=== PATIENT | male | born 1950 | race Caucasian/White ===

== ENCOUNTER 2018-03-16 11:30 | Observation (INO) ==
[2018-03-16] MEDS ORDERED: Acetaminophen 325 MG TABLET PO ONE (11:36)
[2018-03-16] MEDS ORDERED: Ipratropium/Albuterol Neb 3 ML IH ONE (11:43)
[2018-03-16] MEDS ORDERED: methylPREDNISolone 125 MG/2 ML VIAL IVP ONE (11:44)
--- NOTE | 2018-03-16 11:55 | Emergency Department Note ---
Disposition Clinical Impression: HCAP (healthcare-associated pneumonia) Disposition: Admitted As Inpatient Condition: Fair General Adult HPI - General Chief complaint: ED Fever Stated complaint: fever/edema Time Seen by Provider: 03/16/18 11:33 Source: patient, EMS Limitations: no limitations Nursing Notes Reviewed: Yes Vital Signs Reviewed: Yes - History of Present Illness HPI Narrative: 67-year-old male who stays at [facility] emergency department after concern for fever at group home. They reported temperature was as high as 102 degrees. Patient's reported that he has had chills for the last 2-1/2 weeks. He states his also states that he has increasing lower extremity edema as well. Patient does have known history of congestive heart failure. Patient states that he has had increased cough, has a history of smoking. Pain Scale: 0 - Related Data Home Medications Medication Instructions Recorded Confirmed Atorvastatin Calcium [Lipitor] 20 mg PO HS 01/11/17 03/16/18 Aspirin [Lo-Dose Aspirin EC] 81 mg PO DAILY 03/16/18 03/16/18 Brimonidine Tartrate [Alphagan P] 1 drop LEFT EYE BID 03/16/18 03/16/18 Carvedilol 3.125 mg PO BID 03/16/18 03/16/18 Cyclopentolate 1 drop LEFT EYE TID 03/16/18 03/16/18 Docusate Sodium [Dok] 100 mg PO BID 03/16/18 03/16/18 Furosemide [Lasix] 40 mg PO DAILY 03/16/18 03/16/18 Hydralazine HCl 50 mg PO TID 03/16/18 03/16/18 Isosorbide DInitrate [Isordil] 40 mg PO TID 03/16/18 03/16/18 Loperamide [Imodium] 2 mg PO DAILY PRN 03/16/18 03/16/18 Melatonin [Melatin] 6 mg PO HS 03/16/18 03/16/18 Metformin HCl [Glucophage] 1,000 mg PO DAILY 03/16/18 03/16/18 Polyethylene Glycol 3350 [MiraLAX 1 scoop PO DAILY 03/16/18 03/16/18 Powder Bulk 17.9 Oz] Potassium Chloride [K-Tab ER] 20 meq PO DAILY 03/16/18 03/16/18 PrednisoLONE Acetate 1% Opth 1 drop LEFT EYE QID 03/16/18 03/16/18 [PredFORTE 1%] Warfarin [Coumadin] 3.5 mg PO DAILY 03/16/18 03/16/18 Allergies Allergy/AdvReac Type Severity Reaction Status Date / Time No Known Allergies Allergy Verified 01/11/17 09:05 All systems ED: reviewed and negative except as stated. Review of Systems: As Per HPI Constitutional: Reports: fever, chills Cardiovascular: Denies: chest pain Respiratory: Reports: cough. Denies: dyspnea Gastrointestinal: Denies: abdominal pain, nausea, vomiting Genitourinary: Denies: urgency, dysuria Musculoskeletal: Denies: back pain Neurological: Denies: headache Endocrine: Reports: fatigue Past Medical History - Past Medical History Medical history: Reports: atrial fibrillation, CHF, coronary artery disease, diabetes, hypertension, myocardial infarction, renal disease, other Psychiatric history: Reports: no psych history - Social History Smoking Status: Former smoker Smokeless Tobacco Status: No Alcohol use: Reports: none Drug use: Reports: none Physical Exam - General Limitations: no limitations General appearance: alert, in no apparent distress - Head Head exam: atraumatic, normocephalic - Eye Eye exam: Present: EOMI. Absent: scleral icterus - ENT ENT exam: mucous membranes dry - Neck Neck exam: Present: trachea midline - Chest Chest inspection: Present: symmetric chest wall rise - Respiratory Respiratory exam: Present: normal lung sounds bilaterally. Absent: respiratory distress - Cardiovascular Cardiovascular exam: Present: regular rate, normal rhythm, normal heart sounds - Abdominal Exam Abdominal exam: Present: soft, Non-Tender. Absent: distention, guarding, rebound, rigidity - Extremities Exam Extremities exam: Present: other (Chronic venous stasis changes) - Neurological Exam Neurological exam: Present: alert - Skin Skin exam: Present: warm, dry Course Vital Signs Temperature 97.5 F L 03/16/18 11:32 Pulse Rate 71 03/16/18 11:32 Respiratory Rate 19 03/16/18 11:32 Blood Pressure 193/117 03/16/18 11:32 O2 Sat by Pulse Oximetry 96 03/16/18 11:32 Temperature 97.5 F L 03/16/18 11:32 Pulse Rate 98 03/16/18 14:35 Respiratory Rate 26 03/16/18 14:35 Blood Pressure 178/105 03/16/18 14:35 O2 Sat by Pulse Oximetry 100 03/16/18 14:35 Oxygen Delivery Oxygen Delivery Nasal Cannula Medical Decision Making - MDM Narrative Medical decision making narrative: 67-year-old male presents to the emergency department with concern for fever at [facility]. Patient had temperature 102 degrees there. Patient currently afebrile here. He is not tachycardic. He is not hypotensive. Clinically, I do not hear any wheezes on lung exam, do not hear any rales. He does not appear to be in any respiratory distress. Patient has been complaining of increasing cough for last few weeks. I do suspect he may have a component of COPD. We will give DuoNeb's here in the emergency department as well as 125 mg Solu-Medrol. Patient not currently hypoxic. Chest x-ray reveals airspace opacification patient in the right upper lobe. Patient also has cardiomegaly pulmonary vascular congestion. Due to him being a group home patient, there is concern for HCAP. Patient has been given cefepime, azithromycin, vancomycin. Patient's oxygen saturation dropped after administration of DuoNeb's. He was placed on nasal cannula at 4 L at that point. Troponin is 0.04. Is the patient's normal limits. Patient has elevated creatinine. It is 1.85. This is also within his normal range and improved. Patient was admitted to hospitalist. Hemodynamically stable at that time. I discussed plan with patient and he agreed. Chest X-Ray 03/16/18 11:38 IMPRESSION: Airspace opacification in the right upper lobe could represent pneumonia Cardiomegaly with pulmonary vascular congestion D/ / Lasha Long MD / Lasha Long MD Interpreting Provider: Lasha Long MD - Lab Data Result diagrams: 03/16/18 12:32 03/16/18 12:32 Lab Results 03/16/18 03/16/18 03/16/18 Range/Units 12:32 12:32 12:32 WBC 10.7 (4.3-11.1) K/mcL RBC 4.00 L (4.19-5.50) M/mcL Hgb 11.5 L (12.9-16.9) g/dL Hct 36.5 L (37.5-50.1) % MCV 91.3 (83.0-100.0) fL MCH 28.8 (28.0-33.3) pg MCHC 31.5 L (31.6-35.5) g/dL RDW 14.9 H (11.5-14.5) % Plt Count 233 (140-400) K/mcL MPV 10.8 (9.4-12.4) fL Immature Gran % 0.5 (0-4) % Seg Neutrophils % 66.1 % Lymphocytes % 24.4 % Monocytes % 8.4 % Eosinophils % 0.3 % Basophils % 0.3 % Neutrophils # 7.1 (1.6-8.9) K/mcL Lymphocytes # 2.6 (0.6-4.6) K/mcL Monocytes # 0.9 (0.0-1.3) K/mcL Eosinophils # 0.0 (0.0-0.6) K/mcL Basophils # 0.0 (0.0-0.2) K/mcL Nucleated RBCs/100 WBC 0.3 H (0) /100 WBC PT (9.4-12.1) Seconds INR Sodium 140 (136-145) mEq/L Potassium 3.7 (3.5-5.1) mEq/L Chloride 111 H (98-107) mEq/L Carbon Dioxide 18 L (23-29) mEq/L BUN 38 H (8-23) mg/dL Creatinine 1.85 H (0.70-1.30) mg/dL Est GFR ( Amer) 45 L (> 60) Est GFR (Non-Af Amer) 37 L (> 60) BUN/Creatinine Ratio 21 (6-26) Glucose 109 H (70-105) mg/dL Calculated Osmolality 300 (280-300) Lactic Acid 1.3 (0.5-2.2) mmol/L Calcium 8.7 (8.6-10.3) mg/dL Total Bilirubin 0.8 (0.3-1.0) mg/dL Direct Bilirubin 0.4 H (0.0-0.2) mg/dL Indirect Bilirubin 0.4 (0.0-1.2) mg/dL AST 11 L (13-39) Units/L ALT 11 (7-52) Units/L Alkaline Phosphatase 199 H (34-104) Units/L Troponin I 0.04 H* (< 0.04) ng/mL B-Natriuretic Peptide (Less than 100) pg/mL Serum Total Protein 5.8 L (6.4-8.9) g/dL Albumin 2.8 L (3.5-5.7) g/dL Globulin 3.0 (2.4-3.5) g/dL Albumin/Globulin Ratio 0.9 L (1.1-2.2) Lipase 5 L (11-82) Units/L 03/16/18 03/16/18 Range/Units 12:32 13:27 WBC (4.3-11.1) K/mcL RBC (4.19-5.50) M/mcL Hgb (12.9-16.9) g/dL Hct (37.5-50.1) % MCV (83.0-100.0) fL MCH (28.0-33.3) pg MCHC (31.6-35.5) g/dL RDW (11.5-14.5) % Plt Count (140-400) K/mcL MPV (9.4-12.4) fL Immature Gran % (0-4) % Seg Neutrophils % % Lymphocytes % % Monocytes % % Eosinophils % % Basophils % % Neutrophils # (1.6-8.9) K/mcL Lymphocytes # (0.6-4.6) K/mcL Monocytes # (0.0-1.3) K/mcL Eosinophils # (0.0-0.6) K/mcL Basophils # (0.0-0.2) K/mcL Nucleated RBCs/100 WBC (0) /100 WBC PT 15.7 H (9.4-12.1) Seconds INR 1.4 Sodium (136-145) mEq/L Potassium (3.5-5.1) mEq/L Chloride (98-107) mEq/L Carbon Dioxide (23-29) mEq/L BUN (8-23) mg/dL Creatinine (0.70-1.30) mg/dL Est GFR ( Amer) (> 60) Est GFR (Non-Af Amer) (> 60) BUN/Creatinine Ratio (6-26) Glucose (70-105) mg/dL Calculated Osmolality (280-300) Lactic Acid (0.5-2.2) mmol/L Calcium (8.6-10.3) mg/dL Total Bilirubin (0.3-1.0) mg/dL Direct Bilirubin (0.0-0.2) mg/dL Indirect Bilirubin (0.0-1.2) mg/dL AST (13-39) Units/L ALT (7-52) Units/L Alkaline Phosphatase (34-104) Units/L Troponin I (< 0.04) ng/mL B-Natriuretic Peptide > 5000 H (Less than 100) pg/mL Serum Total Protein (6.4-8.9) g/dL Albumin (3.5-5.7) g/dL Globulin (2.4-3.5) g/dL Albumin/Globulin Ratio (1.1-2.2) Lipase (11-82) Units/L - EKG Data EKG #1 EKG attestation: Yes I reviewed and interpreted this EKG. EKG results narrative: 11:57 Ventricular rate 75 bpm, no FL interval, QRS duration 164 ms, QTC 457 ms, QTC 485 ms, left axis deviation. No evidence of any ischemic ST changes on this EKG. Compare with the previous study obtained on 12/17/2017.
[2018-03-16] MEDS ORDERED: Cefepime HCl 2,000 MG in Water for inj. (sterile) 20 ML 20 ML IVP ONE (12:26)
[2018-03-16] MEDS ORDERED: Azithromycin 500 MG in D5% in Water 250 ML IVPB ONE (12:26)
[2018-03-16 13:28] LABS: Basophils % 0.3 %; Eosinophils % 0.3 %; Hematocrit 36.5 % (37.5-50.1); Hemoglobin 11.5 g/dL (12.9-16.9); Immature Granulocytes % 0.5 % (0-4); Lymphocytes # 2.6 K/mcL (0.6-4.6); Lymphocytes % 24.4 %; Mean Corpuscular HGB Conc 31.5 g/dL (31.6-35.5); Mean Corpuscular Hemoglobin 28.8 pg (28.0-33.3); Mean Corpuscular Volume 91.3 fL (83.0-100.0); Mean Platelet Volume 10.8 fL (9.4-12.4); Monocytes # 0.9 K/mcL (0.0-1.3); Monocytes % 8.4 %; Neutrophils # 7.1 K/mcL (1.6-8.9); Nucleated Red Blood Cells 0.3 /100 WBC (0); Platelet Count 233 K/mcL (140-400); Red Cell Distribution Width 14.9 % (11.5-14.5); Segmented Neutrophils % 66.1 %
[2018-03-16 13:53] LABS: Albumin 2.8 g/dL (3.5-5.7); Albumin/Globulin Ratio 0.9 (1.1-2.2); Bilirubin,Direct 0.4 mg/dL (0.0-0.2); Bilirubin,Indirect 0.4 mg/dL (0.0-1.2); Bilirubin,Total 0.8 mg/dL (0.3-1.0); Calcium 8.7 mg/dL (8.6-10.3); Potassium 3.7 mEq/L (3.5-5.1); Total Protein 5.8 g/dL (6.4-8.9)
[2018-03-16 13:59] LABS: Troponin I 0.04 ng/mL (< 0.04)
[2018-03-16 14:06] LABS: INR 1.4; Prothrombin Time 15.7 Seconds (9.4-12.1)
--- NOTE | 2018-03-16 14:08 | Emergency Department Note ---
Disposition Clinical Impression: HCAP (healthcare-associated pneumonia) Disposition: Admitted As Inpatient Condition: Fair Referrals: Fer Nur MD [Primary Care Provider] - Forms: ED Satisfaction Letter Time of Disposition: 13:00 General Adult HPI - General Chief complaint: ED Fever Stated complaint: fever/edema Time Seen by Provider: 03/16/18 11:33 Source: patient, EMS Limitations: no limitations Nursing Notes Reviewed: Yes Vital Signs Reviewed: Yes - History of Present Illness Pain Scale: 0 - Related Data Home Medications Medication Instructions Recorded Confirmed Atorvastatin Calcium [Lipitor] 20 mg PO HS 01/11/17 03/16/18 Aspirin [Lo-Dose Aspirin EC] 81 mg PO DAILY 03/16/18 03/16/18 Brimonidine Tartrate [Alphagan P] 1 drop LEFT EYE BID 03/16/18 03/16/18 Carvedilol 3.125 mg PO BID 03/16/18 03/16/18 Cyclopentolate 1 drop LEFT EYE TID 03/16/18 03/16/18 Docusate Sodium [Dok] 100 mg PO BID 03/16/18 03/16/18 Furosemide [Lasix] 40 mg PO DAILY 03/16/18 03/16/18 Hydralazine HCl 50 mg PO TID 03/16/18 03/16/18 Isosorbide DInitrate [Isordil] 40 mg PO TID 03/16/18 03/16/18 Loperamide [Imodium] 2 mg PO DAILY PRN 03/16/18 03/16/18 Melatonin [Melatin] 6 mg PO HS 03/16/18 03/16/18 Metformin HCl [Glucophage] 1,000 mg PO DAILY 03/16/18 03/16/18 Polyethylene Glycol 3350 [MiraLAX 1 scoop PO DAILY 03/16/18 03/16/18 Powder Bulk 17.9 Oz] Potassium Chloride [K-Tab ER] 20 meq PO DAILY 03/16/18 03/16/18 PrednisoLONE Acetate 1% Opth 1 drop LEFT EYE QID 03/16/18 03/16/18 [PredFORTE 1%] Warfarin [Coumadin] 3.5 mg PO DAILY 03/16/18 03/16/18 Allergies Allergy/AdvReac Type Severity Reaction Status Date / Time No Known Allergies Allergy Verified 01/11/17 09:05 Constitutional: Reports: fever, chills Cardiovascular: Denies: chest pain Respiratory: Reports: cough. Denies: dyspnea Gastrointestinal: Denies: abdominal pain, nausea, vomiting Genitourinary: Denies: urgency, dysuria Musculoskeletal: Denies: back pain Neurological: Denies: headache Endocrine: Reports: fatigue Past Medical History - Past Medical History Medical history: Reports: atrial fibrillation, CHF, coronary artery disease, diabetes, hypertension, myocardial infarction, renal disease, other Psychiatric history: Reports: no psych history - Social History Smoking Status: Former smoker Smokeless Tobacco Status: No Alcohol use: Reports: none Drug use: Reports: none Physical Exam - General Limitations: no limitations General appearance: alert, in no apparent distress Course Vital Signs Temperature 97.5 F L 03/16/18 11:32 Pulse Rate 71 03/16/18 11:32 Respiratory Rate 19 03/16/18 11:32 Blood Pressure 193/117 03/16/18 11:32 O2 Sat by Pulse Oximetry 96 03/16/18 11:32 Temperature 97.5 F L 03/16/18 11:32 Pulse Rate 87 03/16/18 13:28 Respiratory Rate 26 03/16/18 13:28 Blood Pressure 168/111 03/16/18 13:28 O2 Sat by Pulse Oximetry 99 03/16/18 13:28 Oxygen Delivery Oxygen Delivery Nasal Cannula Medical Decision Making - Lab Data Result diagrams: 03/16/18 12:32 03/16/18 12:32 Lab Results 03/16/18 03/16/18 03/16/18 Range/Units 12:32 12:32 12:32 WBC 10.7 (4.3-11.1) K/mcL RBC 4.00 L (4.19-5.50) M/mcL Hgb 11.5 L (12.9-16.9) g/dL Hct 36.5 L (37.5-50.1) % MCV 91.3 (83.0-100.0) fL MCH 28.8 (28.0-33.3) pg MCHC 31.5 L (31.6-35.5) g/dL RDW 14.9 H (11.5-14.5) % Plt Count 233 (140-400) K/mcL MPV 10.8 (9.4-12.4) fL Immature Gran % 0.5 (0-4) % Seg Neutrophils % 66.1 % Lymphocytes % 24.4 % Monocytes % 8.4 % Eosinophils % 0.3 % Basophils % 0.3 % Neutrophils # 7.1 (1.6-8.9) K/mcL Lymphocytes # 2.6 (0.6-4.6) K/mcL Monocytes # 0.9 (0.0-1.3) K/mcL Eosinophils # 0.0 (0.0-0.6) K/mcL Basophils # 0.0 (0.0-0.2) K/mcL Nucleated RBCs/100 WBC 0.3 H (0) /100 WBC PT (9.4-12.1) Seconds INR Sodium 140 (136-145) mEq/L Potassium 3.7 (3.5-5.1) mEq/L Chloride 111 H (98-107) mEq/L Carbon Dioxide 18 L (23-29) mEq/L BUN 38 H (8-23) mg/dL Creatinine 1.85 H (0.70-1.30) mg/dL Est GFR ( Amer) 45 L (> 60) Est GFR (Non-Af Amer) 37 L (> 60) BUN/Creatinine Ratio 21 (6-26) Glucose 109 H (70-105) mg/dL Calculated Osmolality 300 (280-300) Lactic Acid 1.3 (0.5-2.2) mmol/L Calcium 8.7 (8.6-10.3) mg/dL Total Bilirubin 0.8 (0.3-1.0) mg/dL Direct Bilirubin 0.4 H (0.0-0.2) mg/dL Indirect Bilirubin 0.4 (0.0-1.2) mg/dL AST 11 L (13-39) Units/L ALT 11 (7-52) Units/L Alkaline Phosphatase 199 H (34-104) Units/L Troponin I 0.04 H* (< 0.04) ng/mL Serum Total Protein 5.8 L (6.4-8.9) g/dL Albumin 2.8 L (3.5-5.7) g/dL Globulin 3.0 (2.4-3.5) g/dL Albumin/Globulin Ratio 0.9 L (1.1-2.2) Lipase 5 L (11-82) Units/L /08/18 Range/Units 13:27 WBC (4.3-11.1) K/mcL RBC (4.19-5.50) M/mcL Hgb (12.9-16.9) g/dL Hct (37.5-50.1) % MCV (83.0-100.0) fL MCH (28.0-33.3) pg MCHC (31.6-35.5) g/dL RDW (11.5-14.5) % Plt Count (140-400) K/mcL MPV (9.4-12.4) fL Immature Gran % (0-4) % Seg Neutrophils % % Lymphocytes % % Monocytes % % Eosinophils % % Basophils % % Neutrophils # (1.6-8.9) K/mcL Lymphocytes # (0.6-4.6) K/mcL Monocytes # (0.0-1.3) K/mcL Eosinophils # (0.0-0.6) K/mcL Basophils # (0.0-0.2) K/mcL Nucleated RBCs/100 WBC (0) /100 WBC PT 15.7 H (9.4-12.1) Seconds INR 1.4 Sodium (136-145) mEq/L Potassium (3.5-5.1) mEq/L Chloride (98-107) mEq/L Carbon Dioxide (23-29) mEq/L BUN (8-23) mg/dL Creatinine (0.70-1.30) mg/dL Est GFR ( Amer) (> 60) Est GFR (Non-Af Amer) (> 60) BUN/Creatinine Ratio (6-26) Glucose (70-105) mg/dL Calculated Osmolality (280-300) Lactic Acid (0.5-2.2) mmol/L Calcium (8.6-10.3) mg/dL Total Bilirubin (0.3-1.0) mg/dL Direct Bilirubin (0.0-0.2) mg/dL Indirect Bilirubin (0.0-1.2) mg/dL AST (13-39) Units/L ALT (7-52) Units/L Alkaline Phosphatase (34-104) Units/L Troponin I (< 0.04) ng/mL Serum Total Protein (6.4-8.9) g/dL Albumin (3.5-5.7) g/dL Globulin (2.4-3.5) g/dL Albumin/Globulin Ratio (1.1-2.2) Lipase (11-82) Units/L Attestation Statement - Attestation Attestation: I, Naga Herr, examined this patient and my medical decision-making was reviewed with the IP NETWORK ARCHITECT/PA/Advanced Practice Nurse/Resident Physician. I agree with the documented findings, disposition and treatment plan as described except to the extent set forth below. 67-year-old male presents emergency Department with concerns of fever, shortness of breath, cough productive of yellow pierre sputum. Patient states symptoms have been worsening over the past week. Patient is a poor historian and has difficulty giving a full history regarding his symptoms. Patient has decreased lung sounds bilaterally however no obvious wheezing was present. Chest x-ray shows a right upper lobe pneumonia. [facility] states he had a fever over the past 2 days. Laboratory evaluation showed elevated troponin at 0.04 however is been elevated to this level in the past. Patient also has elevated creatinine at 1.85 however this is better than his previous creatinine recorded in the EMR. He will be given HCAP antibiotics and admitted to the hospitalist for further care and evaluation. Denied chest pain or palpitations or syncope.
[2018-03-16] MEDS ORDERED: Aminoglycoside Consult 1 EACH MC ONE (14:41)
--- NOTE | 2018-03-16 16:48 | Internal Med History&Physical ---
Date of Encounter: 03/16/18 Time of Encounter: 17:30 Internal Medicine - H&P: HPI History of present illness: Mr. Nunn is a 67 year old male 67-year-old male presented with emergency department after concern for fever at [facility]. They reported temperature was as high as 102 degrees. Patient's reported that he has had chills for the last 2-1/2 weeks. He states his also states that he has increasing lower extremity edema as well. Patient does have known history of congestive heart failure. Patient states that he has had increased cough, has a history of smoking. Pain Scale: 0 Past Med Surg Social Fam HX - Past Medical History Medical history: atrial fibrillation, CHF, coronary artery disease, diabetes, hypertension, myocardial infarction, renal disease, other Additional medical history: anemia, mycosis Psychiatric history: no psych history - Past Surgical History Additional surgical history: stents x3, bowel, colostomy and reversal - Social History Smoking Status: Former smoker Smokeless Tobacco Status: No Alcohol use: none Drug use: none Internal Medicine - H&P: Meds Atorvastatin Calcium [Lipitor] 20 mg PO HS 01/11/17 [History] Aspirin [Lo-Dose Aspirin EC] 81 mg PO DAILY 03/16/18 [History] Brimonidine Tartrate [Alphagan P] 1 drop LEFT EYE BID 03/16/18 [History] Carvedilol 3.125 mg PO BID 03/16/18 [History] Cyclopentolate 1 drop LEFT EYE TID 03/16/18 [History] Docusate Sodium [Dok] 100 mg PO BID 03/16/18 [History] Furosemide [Lasix] 40 mg PO DAILY 03/16/18 [History] Hydralazine HCl 50 mg PO TID 03/16/18 [History] Isosorbide DInitrate [Isordil] 40 mg PO TID 03/16/18 [History] Loperamide [Imodium] 2 mg PO DAILY PRN 03/16/18 [History] Melatonin [Melatin] 6 mg PO HS 03/16/18 [History] Metformin HCl [Glucophage] 1,000 mg PO DAILY 03/16/18 [History] Polyethylene Glycol 3350 [MiraLAX Powder Bulk 17.9 Oz] 1 scoop PO DAILY [History] Potassium Chloride [K-Tab ER] 20 meq PO DAILY 03/16/18 [History] PrednisoLONE Acetate 1% Opth [PredFORTE 1%] 1 drop LEFT EYE QID 03/16/18 [ History] Warfarin [Coumadin] 3.5 mg PO DAILY 03/16/18 [History] 3 Allergy/AdvReac Type Severity Reaction Status Date / Time No Known Allergies Allergy Verified 01/11/17 09:05 All Systems PM: A 10-system review of systems was performed and is negative for pertinent findings except as documented above in the HPI. - Constitutional Vitals: Temp Pulse Resp BP Pulse Ox 97.5 F L 82 16 154/93 98 03/16/18 15:24 03/16/18 15:24 03/16/18 15:24 03/16/18 15:24 03/16/18 15:24 Internal Med - H&P Results - Labs CBC & Chem 7: 03/16/18 12:32 03/16/18 12:32 - Assessment and plan (1) HCAP (healthcare-associated pneumonia) Current Visit: Yes Status: Acute (2) Diabetes mellitus Current Visit: Yes Status: Acute (3) Chronic kidney disease Current Visit: Yes Status: Acute (4) Hypertension Current Visit: Yes Status: Acute (5) DVT prophylaxis Current Visit: Yes Status: Acute - Time Spent With Patient Total time spent is greater than 50% in coordination of care (as documented) at patient's floor/unit and/or counseling patient:
[2018-03-16] MEDS ORDERED: Naloxone 0.4 MG/ML INJ IVP PRN (17:37)
[2018-03-16] MEDS ORDERED: *HR* OxyCODONE Immed Rel 5 MG TABLET PO PRN (17:37)
[2018-03-16] MEDS ORDERED: *HR* HYDROcodone/Acet 5/325 mg TABLET PO PRN (17:37)
[2018-03-16] MEDS ORDERED: Warfarin perPT PO PRN (18:00)
[2018-03-16] MEDS ORDERED: Cefepime HCl 2,000 MG in Water for inj. (sterile) 20 ML 20 ML IVP SCH (18:00)
[2018-03-16] MEDS ORDERED: Vancomycin (wt based) 1,000 MG VIAL IVPB SCH (18:00)
[2018-03-16] MEDS ORDERED: *HR* Warfarin 5 MG TABLET PO ONE (18:12)
[2018-03-16] MEDS: Melatonin 3 MG TABLET PO SCH (21:29)
[2018-03-16] MEDS: hydrALAZINE 25 MG TABLET PO SCH (21:29)
[2018-03-16] MEDS: PrednisoLONE Acetate 1% Opth 5 ML BOTTLE LEFT EYE SCH (21:30)
[2018-03-16] MEDS: Cyclopentolate 2 ML BOTTLE LEFT EYE SCH (21:31)
[2018-03-17] MEDS: Cefepime HCl 2,000 MG in Water for inj. (sterile) 20 ML 20 ML IVP SCH ×2 (00:31→12:01)
--- NOTE | 2018-03-17 04:34 | Internal Med History&Physical ---
Date of Encounter: 03/17/18 Time of Encounter: 06:48 Internal Medicine - H&P: HPI History of present illness: Mr. Nunn is a 67 year who presents to the emergency department with concern for fever with temperature 102 degrees , associated with increasing cough for last few weeks. He was treated with DuoNeb's in emergency department as well as 125 mg Solu-Medrol, cefepime, azithromycin, vancomycin and was admitted for further evaluation. Past Med Surg Social Fam HX - Past Medical History Medical history: atrial fibrillation, CHF, coronary artery disease, diabetes, hypertension, myocardial infarction, renal disease, other Additional medical history: anemia, mycosis Psychiatric history: no psych history - Past Surgical History Additional surgical history: stents x3, bowel, colostomy and reversal - Social History Smoking Status: Former smoker Smokeless Tobacco Status: No Alcohol use: none Drug use: none Internal Medicine - H&P: Meds Atorvastatin Calcium [Lipitor] 20 mg PO HS 01/11/17 [History] Aspirin [Lo-Dose Aspirin EC] 81 mg PO DAILY 03/16/18 [History] Brimonidine Tartrate [Alphagan P] 1 drop LEFT EYE BID 03/16/18 [History] Carvedilol 3.125 mg PO BID 03/16/18 [History] Cyclopentolate 1 drop LEFT EYE TID 03/16/18 [History] Docusate Sodium [Dok] 100 mg PO BID 03/16/18 [History] Furosemide [Lasix] 40 mg PO DAILY 03/16/18 [History] Hydralazine HCl 50 mg PO TID 03/16/18 [History] Isosorbide DInitrate [Isordil] 40 mg PO TID 03/16/18 [History] Loperamide [Imodium] 2 mg PO DAILY PRN 03/16/18 [History] Melatonin [Melatin] 6 mg PO HS 03/16/18 [History] Metformin HCl [Glucophage] 1,000 mg PO DAILY 03/16/18 [History] Polyethylene Glycol 3350 [MiraLAX Powder Bulk 17.9 Oz] 1 scoop PO DAILY [History] Potassium Chloride [K-Tab ER] 20 meq PO DAILY 03/16/18 [History] PrednisoLONE Acetate 1% Opth [PredFORTE 1%] 1 drop LEFT EYE QID 03/16/18 [ History] Warfarin [Coumadin] 3.5 mg PO DAILY 03/16/18 [History] 3 Allergy/AdvReac Type Severity Reaction Status Date / Time No Known Allergies Allergy Verified 01/11/17 09:05 All Systems PM: A 10-system review of systems was performed and is negative for pertinent findings except as documented above in the HPI. - Constitutional Vitals: Temp Pulse Resp BP Pulse Ox 97.5 F L 64 18 149/82 94 03/17/18 01:18 03/17/18 01:18 03/17/18 01:18 03/17/18 01:18 03/17/18 01:18 Internal Med - H&P Results - Labs CBC & Chem 7: 03/16/18 12:32 03/16/18 12:32 Labs: Cardiac Enzymes 03/16/18 03/16/18 Range/Units 18:23 23:45 Troponin I 0.07 H* 0.03 (< 0.04) ng/mL - Assessment and plan (1) HCAP (healthcare-associated pneumonia) Current Visit: Yes Status: Acute Assessment and plan: ASSESSMENT: - SOB COPD exacerbation caused by URTI (Pneumonia) PLAN: - Aerosols q 4 hr and PRN SOB - Solu-medrol 40 mg IV q 6 hr - O2 to keep SpO2 higher than 92% (SpO higher than 95% if CAD) - CBCD, BMP in AM - Sputum Gram stain, C+S - Tylenol 650 mg PO q 4-6 hr PRN pain/fever - Heparin 5000 U SQ BID - Home meds - check the list and restart - ABs - Echo to R/O CHF (2) Diabetes mellitus Current Visit: Yes Status: Inactive (3) Chronic kidney disease Current Visit: Yes Status: Acute (4) Hypertension Current Visit: Yes Status: Acute (5) DVT prophylaxis Current Visit: Yes Status: Acute - Time Spent With Patient Total time spent is greater than 50% in coordination of care (as documented) at patient's floor/unit and/or counseling patient:
[2018-03-17] MEDS ORDERED: Azithromycin 500 MG in D5% in Water 250 ML IVPB SCH (05:00)
[2018-03-17] MEDS: Ipratropium/Albuterol Neb 3 ML IH SCH ×4 (05:10→21:30)
[2018-03-17] MEDS: MethylPREDNISolone 40 MG/ML VIAL IVP SCH ×3 (05:10→18:22)
[2018-03-17 06:10] LABS: Hematocrit 30.5 % (37.5-50.1); Mean Corpuscular HGB Conc 31.5 g/dL (31.6-35.5); Mean Corpuscular Hemoglobin 28.5 pg (28.0-33.3); Mean Corpuscular Volume 90.5 fL (83.0-100.0); Platelet Count 216 K/mcL (140-400); Red Blood Count 3.37 M/mcL (4.19-5.50); Red Cell Distribution Width 14.8 % (11.5-14.5)
[2018-03-17 06:11] LABS: Hemoglobin 9.6 g/dL (12.9-16.9)
[2018-03-17 06:17] LABS: INR 1.5; Prothrombin Time 16.8 Seconds (9.4-12.1)
[2018-03-17 06:19] LABS: Activated Partial Thrombo Time 34.7 Seconds (26.0-36.0)
[2018-03-17 06:30] LABS: Albumin 2.2 g/dL (3.5-5.7); Albumin/Globulin Ratio 0.8 (1.1-2.2); Bilirubin,Total 0.5 mg/dL (0.3-1.0); Calcium 7.9 mg/dL (8.6-10.3); Chol/HDL Ratio 3.9 (0-4.9); Globulin 2.7 g/dL (2.4-3.5); Magnesium 1.8 mg/dL (1.6-2.6); Phosphorous 4.6 mg/dL (2.7-4.5); Potassium 4.1 mEq/L (3.5-5.1); Total Protein 4.9 g/dL (6.4-8.9)
[2018-03-17] MEDS: hydrALAZINE 25 MG TABLET PO SCH ×3 (09:35→22:06)
[2018-03-17] MEDS: Furosemide 40 MG TABLET PO SCH (09:35)
[2018-03-17] MEDS: Aspirin Enteric Coated 81 MG Tablet PO SCH (09:36)
[2018-03-17] MEDS: *HR* Metformin 500 MG TABLET PO SCH (09:36)
[2018-03-17] MEDS: Cyclopentolate 2 ML BOTTLE LEFT EYE SCH ×3 (09:45→22:14)
[2018-03-17] MEDS: PrednisoLONE Acetate 1% Opth 5 ML BOTTLE LEFT EYE SCH ×4 (09:51→22:07)
--- NOTE | 2018-03-17 10:53 | Event Note ---
<Timoteo Duke - Last Filed: 03/17/18 15:34> Date of Encounter: 03/17/18 Time of Encounter: 10:53 Mr. Nunn is a 67M who was admitted yesterday evening for fever, chills, and increased cough. He has a hx of HTN, diabetes, and CKD. CXR in the ED revealed an airspace opacification in the right upper lobe potentially representing pneumonia. Since pt lives in a SNF it is likely HCAP. MRSA swab was positive during this admission with no prior hx of MRSA. Pt states he feels warm and is experiencing chills. Complains of increased cough without sputum production and a slight headache. Denies any chest pain, abdominal pain, nausea, vomiting, or diarrhea. Physical Exam: Head: normocephalic, atraumatic Eyes: PERRL, EOMI, sclera anicteric, conjunctive pink Neck: supple, trachea midline Lungs: CTA bilaterally with slightly diminished breath sounds in the right upper lobe. No wheezes, rales, or rhonchi appreciated. Heart: RRR +S1 +S2. No murmurs, clicks, or rubs noted. GI: abdomen soft, non-tender, non-distended. normoactive bowel sounds Extremities: warm, noted edema of the left UE, radial pulses present and symmetrical. No pedal edema or cyanosis noted. Neuro: A&Ox3. No focal deficits. No abnormal speech. Skin: Warm, dry, intact. Chronic venous stasis changes noted in bilateral LEs. A/P: HCAP: - Continue cefepime - D/C vanc since this is the pt's first MRSA + swab - D/C azithromycin - Add levofloxacin for broader coverage of atypical respiratory microbes - Continue Duonebs as needed for SOB - Continue Guaifenesin Diabetes: - Continue Metformin 1000mg HTN: - Continue Hydralazine and Lasix DVT: - continue warfarin <Leopoldo Munoz - Last Filed: 03/17/18 16:41> Date of Encounter: 03/17/18 I examined this patient and my medical decision-making was reviewed with the Resident Physician Dr. Duke. I agree with the documented findings, disposition and treatment plan as described except to the extent set forth below. Mr. Nunn is a 67 y/o M with chronic COPD, Chronic hypoxic resp failure and chronic tobacco dependence pt admitted here for acute pneumonia. Pt was started on empiricla abx. He is feeling little better today Gen: A, A, O x 3 Chest: Diminished BS b/l, moderate wheezing Heart: S1S2+ a/p 1. Acute HCAP - Mostly bacterial 2. Acute COPD exacerbation 3. Chronic Hypoxic resp failure 4. Chronic tobacco dependence emprical abx Cefepime + Levaquin Duoneb and O2 start tapering steroids
[2018-03-17 12:19] LABS: Bilirubin,Urine Small (Negative); Blood,Urine Negative (Negative); Clarity,Urine Clear (Clear); Color,Urine Yellow (Yellow); Glucose,Urine (UA) Normal (Normal); Ketones,Urine Trace mg/dL (Negative); Leukocyte Esterase,Urine Negative (Negative); Nitrite,Urine Negative (Negative); PH,Urine 5.5 pH Units (5.0-8.0); Protein,Urine >=300 mg/dL (Neg-Trace); Specific Gravity,Urine 1.023 (1.010-1.025); Urobilinogen,Urine Normal (Normal)
[2018-03-17 12:21] LABS: Bacteria,Urine None Seen per hpf (None-Few); RBC,Urine 0-3 per hpf (0-3); Squamous Epithelial Cell,Urine Moderate per lpf (None-Few); WBC,Urine 0-3 per hpf (0-3)
[2018-03-17 12:42] LABS: Hyaline Casts,Urine Few per lpf (None-Few)
[2018-03-17 12:43] LABS: Mucus,Urine Few (Few)
[2018-03-17] MEDS ORDERED: levoFLOXacin 500 MG TABLET PO SCH ×2 (13:30→18:00)
[2018-03-17] MEDS ORDERED: *HR* Warfarin 5 MG TABLET PO ONE (18:00)
[2018-03-17] MEDS: Ondansetron 4 MG/2 ML VIAL IVP PRN (18:19)
--- NOTE | 2018-03-17 19:07 | Electrocardiograph Report ---
[place] [id number] Test Date: 2018-03-16 Pat Name: Gary Nunn Department: 111 Room: 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
[2018-03-17] MEDS ORDERED: *HR* Promethazine 25 MG/ML VIAL IVP PRN (19:15)
[2018-03-17] MEDS: Melatonin 3 MG TABLET PO SCH (22:06)
[2018-03-18] MEDS: Cefepime HCl 2,000 MG in Water for inj. (sterile) 20 ML 20 ML IVP SCH ×2 (01:07→12:27)
[2018-03-18] MEDS: Ipratropium/Albuterol Neb 3 ML IH SCH ×4 (03:47→22:32)
[2018-03-18 05:12] LABS: Basophils % 0.1 %; Hematocrit 29.1 % (37.5-50.1); Hemoglobin 9.4 g/dL (12.9-16.9); Immature Granulocytes % 1.3 % (0-4); Lymphocytes # 0.9 K/mcL (0.6-4.6); Lymphocytes % 8.3 %; Mean Corpuscular HGB Conc 32.3 g/dL (31.6-35.5); Mean Corpuscular Hemoglobin 29.3 pg (28.0-33.3); Mean Corpuscular Volume 90.7 fL (83.0-100.0); Mean Platelet Volume 10.9 fL (9.4-12.4); Monocytes # 0.5 K/mcL (0.0-1.3); Monocytes % 4.8 %; Neutrophils # 8.9 K/mcL (1.6-8.9); Platelet Count 244 K/mcL (140-400); Red Blood Count 3.21 M/mcL (4.19-5.50); Red Cell Distribution Width 14.8 % (11.5-14.5); Segmented Neutrophils % 85.5 %
[2018-03-18 05:19] LABS: INR 1.6; Prothrombin Time 17.6 Seconds (9.4-12.1)
[2018-03-18 05:34] LABS: Calcium 8.1 mg/dL (8.6-10.3); Potassium 4.1 mEq/L (3.5-5.1)
[2018-03-18] MEDS: MethylPREDNISolone 40 MG/ML VIAL IVP SCH ×2 (06:30→16:47)
[2018-03-18] MEDS: Ondansetron 4 MG/2 ML VIAL IVP PRN (09:12)
[2018-03-18] MEDS: PrednisoLONE Acetate 1% Opth 5 ML BOTTLE LEFT EYE SCH ×4 (09:18→22:09)
--- NOTE | 2018-03-18 09:24 | Internal Med Progress Note ---
<Timoteo Duke - Last Filed: 03/18/18 16:11> Date of Encounter: 03/18/18 Time of Encounter: 09:05 - Assessment and plan (1) HCAP (healthcare-associated pneumonia) Current Visit: Yes Status: Acute Assessment and plan: Afebrile and no leukocytosis - Continue cefepime and levofloxacin - Continue Duonebs as needed for SOB - Continue Guaifenesin (2) Nausea & vomiting Current Visit: Yes Status: Acute Assessment and plan: Pt reports nausea and vomited yesterday Has PRN zofran and phenergan Qualifiers: Vomiting type: unspecified Vomiting Intractability: non-intractable Qualified Code(s): R11.2 - Nausea with vomiting, unspecified (3) Hypertension Current Visit: Yes Status: Acute Assessment and plan: Stable Continue Hydralazine and Lasix Qualifiers: Hypertension type: essential hypertension Qualified Code(s): I10 - Essential (primary) hypertension (4) Chronic kidney disease Current Visit: Yes Status: Acute Assessment and plan: Stable Cr today was 1.89 which appears to be around the patient's baseline from previous visits Qualifiers: Chronic kidney disease stage: unspecified stage Qualified Code(s): N18.9 - Chronic kidney disease, unspecified (5) DVT prophylaxis Current Visit: Yes Status: Acute Assessment and plan: on warfarin (6) COPD exacerbation Current Visit: Yes Status: Acute Assessment and plan: Pt very uncooperative and refusing po medications at this time Continue Solumedrol 40mg IV BID - Time Spent With Patient Total time spent is greater than 50% in coordination of care (as documented) at patient's floor/unit and/or counseling patient: - Subjective Interval history: Mr. Nunn is a 67M who was admitted on 03/16 for fever, chills, and increased cough. He has a hx of HTN, diabetes, and CKD. CXR in the ED revealed an airspace opacification in the right upper lobe potentially representing pneumonia. Since pt lives in a SNF it is likely HCAP. MRSA swab was positive during this admission with no prior hx of MRSA. 03/18: Pt resting comfortable in bed, but is irritable and minimally cooperative. States he feels worse than yesterday and now feels nauseous. Admits to an episode of emesis last night, but has not since. States cough remains unchanged with sputum production. Denies any fever, chills, chest pain, dysuria, diarrhea, headache, numbness, or tingling. - Constitutional Vitals: Temp Pulse Resp BP Pulse Ox 97.6 F 54 16 128/58 94 03/18/18 07:37 03/18/18 07:37 03/18/18 07:37 03/18/18 07:37 03/18/18 07:37 General appearance: Present: A&O X 2, answers questions appropriately. Absent: cooperative, pleasant Exam: Head: Normocephalic, atraumatic Eyes: PERRL, EOMI, conjunctiva pink, sclera anicteric Neck: Supple, trachea midline Lungs: Clear to auscultation bilaterally. Nonlabored breathing. No wheezes, rales, or rhonchi noted. Cardiac: RRR. No murmurs, clicks, or rubs noted. GI: Abdomen soft, nontender, nondistended. Normoactive bowel sounds Extremities: Warm, radial pulses palpable and symmetrical. Edema of right UE improved from yesterday. No cyanosis, pedal edema, or calf tenderness. Neuro: Alert and oriented 2. No focal deficits. Normal speech. Skin: Warm, dry, and intact. Venous stasis changes bilateral LEs. Internal Medicine: Result - Labs CBC & Chem 7: 03/18/18 04:03 03/18/18 04:03 Labs: Short CBC 03/18/18 Range/Units 04:03 WBC 10.4 (4.3-11.1) K/mcL Hgb 9.4 L (12.9-16.9) g/dL Hct 29.1 L (37.5-50.1) % Plt Count 244 (140-400) K/mcL Neutrophils # 8.9 (1.6-8.9) K/mcL BMP 03/18/18 04:03 Sodium 142 Potassium 4.1 Chloride 114 H Carbon Dioxide 22 L BUN 47 H Creatinine 1.89 H Glucose 249 H Calcium 8.1 L Urine 03/17/18 Range/Units 11:51 Urine Color Yellow (Yellow) Urine Clarity Clear (Clear) Urine pH 5.5 (5.0-8.0) pH Units Ur Specific [place] 1.023 (1.010-1.025) Urine Protein >=300 H (Neg-Trace) mg/dL Urine Glucose (UA) Normal (Normal) mg/dL - ABG Interpretation ABG results: PT/INR, D-dimer PT 17.6 Seconds (9.4-12.1) H 03/18/18 04:03 Consult Discharge Plan - Plan Referrals: Fer Nur MD [Primary Care Provider] - <Leopoldo Munoz - Last Filed: 03/18/18 16:45> Date of Encounter: 03/18/18 - Assessment and plan (1) HCAP (healthcare-associated pneumonia) Current Visit: Yes Status: Acute (2) Chronic kidney disease Current Visit: Yes Status: Acute Qualifiers: Chronic kidney disease stage: unspecified stage Qualified Code(s): N18.9 - Chronic kidney disease, unspecified (3) Hypertension Current Visit: Yes Status: Acute Qualifiers: Hypertension type: essential hypertension Qualified Code(s): I10 - Essential (primary) hypertension (4) DVT prophylaxis Current Visit: Yes Status: Acute (5) Nausea & vomiting Current Visit: Yes Status: Acute Qualifiers: Vomiting type: unspecified Vomiting Intractability: non-intractable Qualified Code(s): R11.2 - Nausea with vomiting, unspecified (6) COPD exacerbation Current Visit: Yes Status: Acute - Time Spent With Patient Total time spent is greater than 50% in coordination of care (as documented) at patient's floor/unit and/or counseling patient: - Constitutional Vitals: Temp Pulse Resp BP Pulse Ox 98.1 F 60 18 154/73 94 03/18/18 16:21 03/18/18 16:21 03/18/18 16:21 03/18/18 16:21 03/18/18 16:21 Internal Medicine: Result - Labs CBC & Chem 7: 03/18/18 04:03 03/18/18 04:03 Labs: Short CBC 03/18/18 Range/Units 04:03 WBC 10.4 (4.3-11.1) K/mcL Hgb 9.4 L (12.9-16.9) g/dL Hct 29.1 L (37.5-50.1) % Plt Count 244 (140-400) K/mcL Neutrophils # 8.9 (1.6-8.9) K/mcL BMP 07/10/18 04:03 Sodium 142 Potassium 4.1 Chloride 114 H Carbon Dioxide 22 L BUN 47 H Creatinine 1.89 H Glucose 249 H Calcium 8.1 L - ABG Interpretation ABG results: PT/INR, D-dimer PT 17.6 Seconds (9.4-12.1) H 03/18/18 04:03 - Attending Attestation I examined this patient and my medical decision-making was reviewed with the Resident Physician Dr. Duke. I agree with the documented findings, disposition and treatment plan as described except to the extent set forth below. Mr. Nunn is a 67 y/o M with chronic COPD, Chronic hypoxic resp failure and chronic tobacco dependence pt admitted here for acute pneumonia. Pt was started on empirical abx. He is feeling little better today Gen: A, A, O x 3 Chest: Diminished BS b/l, moderate wheezing Heart: S1S2+ a/p 1. Acute HCAP - Mostly bacterial 2. Acute COPD exacerbation 3. Chronic Hypoxic resp failure 4. Chronic tobacco dependence empirical abx Cefepime + Levaquin Duoneb and O2 start tapering steroids since pt refusing PO steroids, will cont IV steroids for now
[2018-03-18] MEDS: Cyclopentolate 2 ML BOTTLE LEFT EYE SCH ×3 (12:26→21:55)
[2018-03-18] MEDS: Aspirin Enteric Coated 81 MG Tablet PO SCH (12:26)
[2018-03-18] MEDS: Furosemide 40 MG TABLET PO SCH (12:26)
[2018-03-18] MEDS: hydrALAZINE 25 MG TABLET PO SCH ×3 (12:26→22:05)
[2018-03-18] MEDS: *HR* Metformin 500 MG TABLET PO SCH (12:26)
[2018-03-18] MEDS ORDERED: levoFLOXacin 500 MG TABLET PO SCH (18:00)
[2018-03-18] MEDS ORDERED: *HR* Warfarin 4 MG TABLET PO ONE (18:00)
[2018-03-18] MEDS: Melatonin 3 MG TABLET PO SCH (22:04)
[2018-03-19] MEDS: Cefepime HCl 2,000 MG in Water for inj. (sterile) 20 ML 20 ML IVP SCH ×2 (01:32→12:16)
[2018-03-19] MEDS: Ipratropium/Albuterol Neb 3 ML IH SCH ×4 (04:06→23:25)
[2018-03-19] MEDS: MethylPREDNISolone 40 MG/ML VIAL IVP SCH (05:07)
[2018-03-19 06:37] LABS: Basophils % 0.1 %; Hematocrit 30.7 % (37.5-50.1); Hemoglobin 9.5 g/dL (12.9-16.9); Lymphocytes # 0.7 K/mcL (0.6-4.6); Lymphocytes % 6.1 %; Mean Corpuscular HGB Conc 30.9 g/dL (31.6-35.5); Mean Corpuscular Hemoglobin 27.9 pg (28.0-33.3); Mean Corpuscular Volume 90.3 fL (83.0-100.0); Mean Platelet Volume 10.8 fL (9.4-12.4); Monocytes # 0.6 K/mcL (0.0-1.3); Monocytes % 4.8 %; Neutrophils # 10.7 K/mcL (1.6-8.9); Platelet Count 246 K/mcL (140-400); Red Cell Distribution Width 14.9 % (11.5-14.5)
[2018-03-19 06:43] LABS: INR 2.2; Prothrombin Time 25.1 Seconds (9.4-12.1)
[2018-03-19 06:47] LABS: Calcium 8.7 mg/dL (8.6-10.3); Potassium 4.3 mEq/L (3.5-5.1)
[2018-03-19] MEDS: *HR* Metformin 500 MG TABLET PO SCH (08:10)
[2018-03-19] MEDS: hydrALAZINE 25 MG TABLET PO SCH ×3 (08:10→21:43)
[2018-03-19] MEDS: Aspirin Enteric Coated 81 MG Tablet PO SCH (08:10)
[2018-03-19] MEDS: Furosemide 40 MG TABLET PO SCH (08:10)
[2018-03-19] MEDS: PrednisoLONE Acetate 1% Opth 5 ML BOTTLE LEFT EYE SCH ×4 (08:16→21:45)
--- NOTE | 2018-03-19 08:18 | Electrocardiograph Report ---
[address] [place], [place] [address] Test Date: 2018-03-16 Pat Name: Gary Nunn Department: 103 Room: 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
[2018-03-19] MEDS ORDERED: predniSONE 20 MG TABLET PO SCH (09:00)
[2018-03-19] MEDS: Cyclopentolate 2 ML BOTTLE LEFT EYE SCH ×3 (10:51→21:44)
--- NOTE | 2018-03-19 11:00 | Discharge Summary ---
<Timoteo Duke - Last Filed: 03/19/18 11:53> Orders not resulted at time of discharge: Pending orders 03/16/18 17:40 Culture,Sputum with Gram Stain [RM] Routine 03/20/18 04:00 PT/INR [Prothrombin Time INR] [COAG] AM 0400 03/21/18 04:00 PT/INR [Prothrombin Time INR] [COAG] AM 0400 Date of Encounter: 03/19/18 Time of Encounter: 10:36 - Discharge Diagnosis (1) HCAP (healthcare-associated pneumonia) Priority: Primary Status: Acute (2) Nausea & vomiting Priority: Secondary Status: Resolved Qualifiers: Vomiting type: unspecified Vomiting Intractability: non-intractable Qualified Code(s): R11.2 - Nausea with vomiting, unspecified (3) Hypertension Priority: Secondary Status: Acute Qualifiers: Hypertension type: essential hypertension Qualified Code(s): I10 - Essential (primary) hypertension (4) Chronic kidney disease Priority: Secondary Status: Acute Qualifiers: Chronic kidney disease stage: unspecified stage Qualified Code(s): N18.9 - Chronic kidney disease, unspecified (5) COPD exacerbation Priority: Primary Status: Acute Hospital course: Mr. Nunn is a 67 year old male Discharge discussed with: patient, nurse, social work, case management - Time Spent with Patient Total time spent providing and/or coordinating discharge services: - Discharge Medications Prescriptions: Doxycycline Hyclate 100 mg PO BID #20 capsule levoFLOXacin [Levaquin] 750 mg PO Q48H #3 tablet predniSONE [PredniSONE] 40 mg PO DAILY 5 Days #5 tablet Home Medications: Atorvastatin Calcium [Lipitor] 20 mg PO HS 01/11/17 [History] Aspirin [Lo-Dose Aspirin EC] 81 mg PO DAILY 03/16/18 [History] Brimonidine Tartrate [Alphagan P] 1 drop LEFT EYE BID 03/16/18 [History] Cyclopentolate 1 drop LEFT EYE TID 03/16/18 [History] Docusate Sodium [Dok] 100 mg PO BID 03/16/18 [History] Furosemide [Lasix] 40 mg PO DAILY 03/16/18 [History] Hydralazine HCl 50 mg PO TID 03/16/18 [History] Isosorbide DInitrate [Isordil] 40 mg PO TID 03/16/18 [History] Loperamide [Imodium] 2 mg PO DAILY PRN 03/16/18 [History] Melatonin [Melatin] 6 mg PO HS 03/16/18 [History] Metformin HCl [Glucophage] 1,000 mg PO DAILY 03/16/18 [History] Polyethylene Glycol 3350 [MiraLAX Powder Bulk 17.9 Oz] 1 scoop PO DAILY [History] Potassium Chloride [K-Tab ER] 20 meq PO DAILY 03/16/18 [History] PrednisoLONE Acetate 1% Opth [PredFORTE 1%] 1 drop LEFT EYE QID 03/16/18 [ History] Warfarin [Coumadin] 3.5 mg PO DAILY 03/16/18 [History] Doxycycline Hyclate 100 mg PO BID #20 capsule 03/19/18 [Rx] levoFLOXacin [Levaquin] 750 mg PO Q48H #3 tablet 03/19/18 [Rx] predniSONE [PredniSONE] 40 mg PO DAILY 5 Days #5 tablet 03/19/18 [Rx] Allergies/Adverse Reactions: 3 Allergy/AdvReac Type Severity Reaction Status Date / Time No Known Allergies Allergy Verified 01/11/17 09:05 Date of admission: 03/16/18 14:40 Primary care physician: Fer Nur MD Consults: 03/16/18 15:39 Consult to Nutrition [CONS] Routine Comment: Consulting Provider: NUTRITION Reason for Dietary Consult: MST Score 03/16/18 17:37 Consult to Nurse Navigator [CONS] Routine Comment: 03/16/18 17:40 Consult to Nurse Navigator [CONS] Routine Comment: 03/17/18 04:51 Consult to Nurse Navigator [CONS] Routine Comment: 03/17/18 11:22 Consult to Recreation Coordinator [CONS] Routine Reason for SW Consult: From ECF Discharging clinician: Timoteo Duke - Constitutional Vitals: Temp Pulse Resp BP Pulse Ox 97.6 F 59 15 164/83 96 03/19/18 08:19 03/19/18 08:19 03/19/18 08:19 03/19/18 08:19 03/19/18 08:19 General appearance: Present: A&O X 2, answers questions appropriately. Absent: cooperative, pleasant Exam: Head: Normocephalic and atraumatic Eyes: PERRL, EOMI, sclera anicteric, conjunctiva pink Neck: supple, trachea midline Lungs: grossly diminished, fine crackles noted in bases bilaterally. No wheezes or rhonchi noted. Heart: RRR +S2 No murmurs, clicks, or rubs. GI: Abdomen soft, non-tender, non-distended. normoactive bowel sounds - Patient Status Disposition: Transfer SNF Condition: Fair Overall status at discharge: patient is progressing back to baseline - Discharge Instructions Instructions: Chronic Obstructive Pulmonary Disease (DC), Pneumonia (DC) Follow Up With: Fer Nur MD [Primary Care Provider] - - Diet and Activity Activity: increase activity as tolerated, resume usual activities as tolerated Diet: diabetic diet, low fat, low cholesterol, low salt diet <Leopoldo Munoz - Last Filed: 03/19/18 17:49> Orders not resulted at time of discharge: Pending orders 03/16/18 17:40 Culture,Sputum with Gram Stain [RM] Routine 03/20/18 04:00 PT/INR [Prothrombin Time INR] [COAG] AM 0400 03/21/18 04:00 PT/INR [Prothrombin Time INR] [COAG] AM 0400 Date of Encounter: 03/19/18 - Discharge Diagnosis (1) HCAP (healthcare-associated pneumonia) Status: Acute (2) Chronic kidney disease Status: Acute Qualifiers: Chronic kidney disease stage: unspecified stage Qualified Code(s): N18.9 - Chronic kidney disease, unspecified (3) Hypertension Status: Acute Qualifiers: Hypertension type: essential hypertension Qualified Code(s): I10 - Essential (primary) hypertension (4) Nausea & vomiting Status: Resolved Qualifiers: Vomiting type: unspecified Vomiting Intractability: non-intractable Qualified Code(s): R11.2 - Nausea with vomiting, unspecified (5) COPD exacerbation Status: Acute Hospital course: Mr. Nunn is a 67 year old male - Time Spent with Patient Total time spent providing and/or coordinating discharge services: Date of admission: 03/16/18 14:40 Primary care physician: Fer Nur MD Consults: 03/16/18 15:39 Consult to Nutrition [CONS] Routine Comment: Consulting Provider: NUTRITION Reason for Dietary Consult: MST Score 03/16/18 17:37 Consult to Nurse Navigator [CONS] Routine Comment: 03/16/18 17:40 Consult to Nurse Navigator [CONS] Routine Comment: 03/17/18 04:51 Consult to Nurse Navigator [CONS] Routine Comment: 03/17/18 11:22 Consult to Recreation Coordinator [CONS] Routine Reason for SW Consult: From ECF - Constitutional Vitals: Temp Pulse Resp BP Pulse Ox 97.8 F 60 14 157/73 98 03/19/18 16:24 03/19/18 16:24 03/19/18 16:24 03/19/18 16:24 03/19/18 16:24 - Attending Attestation I examined this patient and my medical decision-making was reviewed with the Resident Physician Dr. Duke. I agree with the documented findings, disposition and treatment plan as described except to the extent set forth below. Mr. Nunn is a 67 y/o M with chronic COPD, Chronic hypoxic resp failure and chronic tobacco dependence pt admitted here for acute pneumonia. Pt was started on empirical abx. He is feeling little better today Gen: A, A, O x 3 Chest: Diminished BS b/l, moderate wheezing Heart: S1S2+ a/p 1. Acute HCAP - MRSA Sputum cx growing MRSA 2. Acute COPD exacerbation 3. Chronic Hypoxic resp failure 4. Chronic tobacco dependence Abx Levaquin + Doxy Duoneb and O2 Medically stable to d/c to ECF today however they do not have MRSA isolated room , so will hold his discharge for today
--- NOTE | 2018-03-19 13:24 | Physician Discharge Referral ---
[facility] Referral Info Transfer To: f Provider in Charge after Transfer: PCP Institutional Level of Care: Skilled - Diagnosis (1) HCAP (healthcare-associated pneumonia) Status: Acute (2) Chronic kidney disease Status: Acute (3) Hypertension Status: Acute (4) DVT prophylaxis Status: Acute (5) Nausea & vomiting Status: Resolved (6) COPD exacerbation Status: Acute - Transfer Medications Prescriptions: levoFLOXacin [Levaquin] 750 mg PO Q48H #3 tablet predniSONE [PredniSONE] 40 mg PO DAILY 5 Days #5 tablet Home Medications: Atorvastatin Calcium [Lipitor] 20 mg PO HS 01/11/17 [History] Aspirin [Lo-Dose Aspirin EC] 81 mg PO DAILY 03/16/18 [History] Brimonidine Tartrate [Alphagan P] 1 drop LEFT EYE BID 03/16/18 [History] Cyclopentolate 1 drop LEFT EYE TID 03/16/18 [History] Docusate Sodium [Dok] 100 mg PO BID 03/16/18 [History] Furosemide [Lasix] 40 mg PO DAILY 03/16/18 [History] Hydralazine HCl 50 mg PO TID 03/16/18 [History] Isosorbide DInitrate [Isordil] 40 mg PO TID 03/16/18 [History] Loperamide [Imodium] 2 mg PO DAILY PRN 03/16/18 [History] Melatonin [Melatin] 6 mg PO HS 03/16/18 [History] Metformin HCl [Glucophage] 1,000 mg PO DAILY 03/16/18 [History] Polyethylene Glycol 3350 [MiraLAX Powder Bulk 17.9 Oz] 1 scoop PO DAILY [History] Potassium Chloride [K-Tab ER] 20 meq PO DAILY 03/16/18 [History] PrednisoLONE Acetate 1% Opth [PredFORTE 1%] 1 drop LEFT EYE QID 03/16/18 [ History] Warfarin [Coumadin] 3.5 mg PO DAILY 03/16/18 [History] levoFLOXacin [Levaquin] 750 mg PO Q48H #3 tablet 03/19/18 [Rx] predniSONE [PredniSONE] 40 mg PO DAILY 5 Days #5 tablet 03/19/18 [Rx] Allergies/Adverse Reactions: 3 Allergy/AdvReac Type Severity Reaction Status Date / Time No Known Allergies Allergy Verified 01/11/17 09:05 - Respiratory Orders Smoking Cessation: Smoking cessation has been advised. For more information, call the [place] Tobacco Quit Line at 3-124-GNER-NOW. CERTIFICATION: I certify that the transfer of the above named patient to an Extended Care Facility is necessary for the continuing treatment of the diagnosis listed. The above information is true and accurate reflection of patient's current condition. Confidential - Redisclosure prohibited without a patient's written consent.
[2018-03-19] MEDS ORDERED: *HR* Warfarin 2 MG TABLET PO ONE (18:00)
--- NOTE | 2018-03-19 19:42 | Event Note ---
Date of Encounter: 03/19/18 Time of Encounter: 19:39 Pt unable to be discharged to [facility] today due to +MRSA sputum culture. Started on Doxycycline 100 BID. Plan for discharge in AM.
[2018-03-19] MEDS: Doxycycline 100 MG CAPSULE PO SCH (21:43)
[2018-03-19] MEDS: Melatonin 3 MG TABLET PO SCH (21:43)
[2018-03-20] MEDS: Ipratropium/Albuterol Neb 3 ML IH SCH ×2 (04:07→10:51)
[2018-03-20 04:40] LABS: Basophils % 0.1 %; Eosinophils % 0.3 %; Hematocrit 31.9 % (37.5-50.1); Hemoglobin 10.2 g/dL (12.9-16.9); Immature Granulocytes % 1.3 % (0-4); Lymphocytes # 0.9 K/mcL (0.6-4.6); Lymphocytes % 8.3 %; Mean Corpuscular Hemoglobin 28.9 pg (28.0-33.3); Mean Corpuscular Volume 90.4 fL (83.0-100.0); Mean Platelet Volume 10.7 fL (9.4-12.4); Monocytes # 0.8 K/mcL (0.0-1.3); Monocytes % 7.7 %; Neutrophils # 8.5 K/mcL (1.6-8.9); Platelet Count 213 K/mcL (140-400); Red Blood Count 3.53 M/mcL (4.19-5.50); Red Cell Distribution Width 14.8 % (11.5-14.5); Segmented Neutrophils % 82.3 %
[2018-03-20 04:46] LABS: INR 2.9; Prothrombin Time 32.5 Seconds (9.4-12.1)
[2018-03-20 05:00] LABS: Calcium 8.9 mg/dL (8.6-10.3); Potassium 3.9 mEq/L (3.5-5.1)
[2018-03-20 07:19] VITALS: BP 166/90
[2018-03-20] MEDS ORDERED: predniSONE 20 MG TABLET PO SCH (09:00)
--- NOTE | 2018-03-20 09:01 | Internal Med Progress Note ---
<Timoteo Duke - Last Filed: 03/20/18 14:51> Date of Encounter: 03/20/18 Time of Encounter: 09:10 - Assessment and plan (1) HCAP (healthcare-associated pneumonia) Status: Acute Assessment and plan: Afebrile and no leukocytosis - Doxycycline 100mg BID - Continue Duonebs as needed for SOB - Continue Guaifenesin (2) COPD exacerbation Status: Acute Assessment and plan: Continue prednisone 40mg qd (3) Hypertension Status: Acute Assessment and plan: Stable Continue Hydralazine and Lasix Qualifiers: Hypertension type: essential hypertension Qualified Code(s): I10 - Essential (primary) hypertension (4) Chronic kidney disease Status: Acute Assessment and plan: Stable Cr today was 1.99 which appears to be around the patient's baseline from previous visits Qualifiers: Chronic kidney disease stage: unspecified stage Qualified Code(s): N18.9 - Chronic kidney disease, unspecified - Time Spent With Patient Total time spent is greater than 50% in coordination of care (as documented) at patient's floor/unit and/or counseling patient: - Subjective Interval history: Mr. Nunn is a 67M who was admitted on 03/16 for fever, chills, and increased cough. He has a hx of HTN, diabetes, and CKD. CXR in the ED revealed an airspace opacification in the right upper lobe potentially representing pneumonia. Since pt lives in a SNF it is likely HCAP. MRSA swab was positive during this admission with no prior hx of MRSA. 03/18: Pt resting comfortable in bed, but is irritable and minimally cooperative. States he feels worse than yesterday and now feels nauseous. Admits to an episode of emesis last night, but has not since. States cough remains unchanged with sputum production. Denies any fever, chills, chest pain, dysuria, diarrhea, headache, numbness, or tingling. 03/20: Pt resting comfortably in bed. Continues to be irritable and minimally cooperative. Refuses to answer questions. Nurse reports he refused his po meds this AM. - Constitutional Vitals: Temp Pulse Resp BP Pulse Ox 97.4 F L 64 18 166/90 97 03/20/18 07:08 03/20/18 07:08 03/20/18 07:08 03/20/18 07:08 03/20/18 07:08 General appearance: Present: A&O X 2, answers questions appropriately. Absent: cooperative, pleasant Exam: Head: normocephalic, atraumatic Eyes: PERRL, EOMI, sclera anicteric, conjunctive pink Neck: supple, trachea midline Lungs: CTA bilaterally with slightly diminished breath sounds in the right upper lobe. No wheezes, rales, or rhonchi appreciated. Heart: RRR +S1 +S2. No murmurs, clicks, or rubs noted. GI: abdomen soft, non-tender, non-distended. normoactive bowel sounds Extremities: warm, improving edema of the left UE, radial pulses present and symmetrical. No pedal edema or cyanosis noted. Neuro: A&Ox2. No focal deficits. No abnormal speech. Skin: Warm, dry, intact. Chronic venous stasis changes noted in bilateral LEs. Internal Medicine: Result - Labs CBC & Chem 7: 03/20/18 04:20 03/20/18 04:20 Labs: Short CBC 03/20/18 Range/Units 04:20 WBC 10.3 (4.3-11.1) K/mcL Hgb 10.2 L (12.9-16.9) g/dL Hct 31.9 L (37.5-50.1) % Plt Count 213 (140-400) K/mcL Neutrophils # 8.5 (1.6-8.9) K/mcL BMP 03/20/18 04:20 Sodium 140 Potassium 3.9 Chloride 110 H Carbon Dioxide 23 BUN 48 H Creatinine 1.99 H Glucose 139 H Calcium 8.9 - ABG Interpretation ABG results: PT/INR, D-dimer PT 32.5 Seconds (9.4-12.1) H 03/20/18 04:20 Consult Discharge Plan - Plan Instructions: Chronic Obstructive Pulmonary Disease (DC), Pneumonia (DC) Referrals: Fer Nur MD [Primary Care Provider] - Prescriptions: Doxycycline Hyclate 100 mg PO BID #20 capsule levoFLOXacin [Levaquin] 750 mg PO Q48H #3 tablet predniSONE [PredniSONE] 40 mg PO DAILY 5 Days #5 tablet <Leopoldo Munoz - Last Filed: 03/20/18 17:56> Date of Encounter: 03/20/18 - Assessment and plan (1) HCAP (healthcare-associated pneumonia) Status: Acute (2) Chronic kidney disease Status: Acute Qualifiers: Chronic kidney disease stage: unspecified stage Qualified Code(s): N18.9 - Chronic kidney disease, unspecified (3) Hypertension Status: Acute Qualifiers: Hypertension type: essential hypertension Qualified Code(s): I10 - Essential (primary) hypertension (4) COPD exacerbation Status: Acute - Time Spent With Patient Total time spent is greater than 50% in coordination of care (as documented) at patient's floor/unit and/or counseling patient: - Constitutional Vitals: Temp Pulse Resp BP Pulse Ox 97.4 F L 64 18 166/90 97 03/20/18 07:08 03/20/18 07:08 03/20/18 07:08 03/20/18 07:08 03/20/18 07:08 Internal Medicine: Result - Labs CBC & Chem 7: 03/20/18 04:20 03/20/18 04:20 Labs: Short CBC 03/20/18 Range/Units 04:20 WBC 10.3 (4.3-11.1) K/mcL Hgb 10.2 L (12.9-16.9) g/dL Hct 31.9 L (37.5-50.1) % Plt Count 213 (140-400) K/mcL Neutrophils # 8.5 (1.6-8.9) K/mcL BMP 03/20/18 04:20 Sodium 140 Potassium 3.9 Chloride 110 H Carbon Dioxide 23 BUN 48 H Creatinine 1.99 H Glucose 139 H Calcium 8.9 - ABG Interpretation ABG results: PT/INR, D-dimer PT 32.5 Seconds (9.4-12.1) H 03/20/18 04:20 - Attending Attestation I examined this patient and my medical decision-making was reviewed with the Resident Physician Dr. Duke. I agree with the documented findings, disposition and treatment plan as described except to the extent set forth below. Mr. Nunn is a 67 y/o M with chronic COPD, Chronic hypoxic resp failure and chronic tobacco dependence pt admitted here for acute pneumonia. Pt was started on empirical abx. Denied any new complaints Gen: A, A, O x 3 Chest: Diminished BS b/l, moderate wheezing Heart: S1S2+ a/p 1. Acute HCAP - MRSA Sputum cx growing MRSA 2. Acute COPD exacerbation 3. Chronic Hypoxic resp failure ( does use o2 at night time and as needed at ECF ) 4. Chronic tobacco dependence Abx Levaquin + Doxy Duoneb and O2 Medically stable to d/c to ECF today
[2018-03-20] MEDS: *HR* Metformin 500 MG TABLET PO SCH (10:25)
[2018-03-20] MEDS: Doxycycline 100 MG CAPSULE PO SCH (10:25)
[2018-03-20] MEDS: hydrALAZINE 25 MG TABLET PO SCH (10:26)
[2018-03-20] MEDS: Cyclopentolate 2 ML BOTTLE LEFT EYE SCH (10:26)
[2018-03-20] MEDS: Furosemide 40 MG TABLET PO SCH (10:26)
[2018-03-20] MEDS: Aspirin Enteric Coated 81 MG Tablet PO SCH (10:26)
[2018-03-20] MEDS: PrednisoLONE Acetate 1% Opth 5 ML BOTTLE LEFT EYE SCH (10:27)
== END 2018-03-20 11:44 ==
LOC: 2NENU 11:30 → EMEROO 11:30 → 2NENU 15:22
PROVIDERS: ADMIT Student in an Organized Health Care Education/Training Program; ATTEND Student in an Organized Health Care Education/Training Program

== ENCOUNTER 2018-04-15 13:57 | Inpatient (IN) ==
[2018-04-15] MEDS ORDERED: Aspirin 81 MG TAB.CHEW PO ONE (14:14)
[2018-04-15] MEDS ORDERED: Furosemide 40 MG/4 ML VIAL IVP ONE (14:15)
--- NOTE | 2018-04-15 14:18 | Emergency Department Note ---
Disposition Clinical Impression: CHF (congestive heart failure) Disposition: Admitted As Inpatient Referrals: Fer Nur MD [Primary Care Provider] - General Adult HPI - General Chief complaint: ED Recheck/Abnormal Lab/Rx Stated complaint: abnormal labs Time Seen by Provider: 04/15/18 14:03 Source: EMS Limitations: no limitations - History of Present Illness Pain Scale: 0 - Related Data Home Medications Medication Instructions Recorded Confirmed Atorvastatin Calcium [Lipitor] 20 mg PO HS 01/11/17 03/16/18 Aspirin [Lo-Dose Aspirin EC] 81 mg PO DAILY 03/16/18 03/16/18 Brimonidine Tartrate [Alphagan P] 1 drop LEFT EYE BID 03/16/18 03/16/18 Cyclopentolate 1 drop LEFT EYE TID 03/16/18 03/16/18 Docusate Sodium [Dok] 100 mg PO BID 03/16/18 03/16/18 Furosemide [Lasix] 40 mg PO DAILY 03/16/18 03/16/18 Hydralazine HCl 50 mg PO TID 03/16/18 03/16/18 Isosorbide DInitrate [Isordil] 40 mg PO TID 03/16/18 03/16/18 Loperamide [Imodium] 2 mg PO DAILY PRN 03/16/18 03/16/18 Melatonin [Melatin] 6 mg PO HS 03/16/18 03/16/18 Metformin HCl [Glucophage] 1,000 mg PO DAILY 03/16/18 03/16/18 Polyethylene Glycol 3350 [MiraLAX 1 scoop PO DAILY 03/16/18 03/16/18 Powder Bulk 17.9 Oz] Potassium Chloride [K-Tab ER] 20 meq PO DAILY 03/16/18 03/16/18 PrednisoLONE Acetate 1% Opth 1 drop LEFT EYE QID 03/16/18 03/16/18 [PredFORTE 1%] Warfarin [Coumadin] 3.5 mg PO DAILY 03/16/18 03/16/18 Previous Rx's Medication Instructions Recorded Doxycycline Hyclate 100 mg PO BID #20 capsule 03/19/18 levoFLOXacin [Levaquin] 750 mg PO Q48H #3 tablet 03/19/18 predniSONE [PredniSONE] 40 mg PO DAILY 5 Days #5 tablet 03/19/18 Allergies Allergy/AdvReac Type Severity Reaction Status Date / Time No Known Allergies Allergy Verified 01/11/17 09:05 Past Medical History - Past Medical History Medical history: Reports: atrial fibrillation, CHF, coronary artery disease, diabetes, hypertension, myocardial infarction, renal disease, other Psychiatric history: Reports: no psych history - Social History Smoking Status: Former smoker Smokeless Tobacco Status: No Alcohol use: Reports: none Drug use: Reports: none Physical Exam - General Limitations: no limitations General appearance: alert, in no apparent distress Course - Reevaluation(s) Reevaluation #1: Attestation note I examined this patient and my medical decision-making was reviewed with the emergency medicine resident. I agree with the documented findings, disposition and treatment plan as described except to the extent set forth below. Patient seen with emergency medicine resident Dr. Asiya Huang, Please see a copy of his note for details of the H&P, ED evaluation, management and disposition. I have independently evaluated the patient and confirmed appropriate portions of the history and physical exam. Briefly: 67-year-old male via EMS from local long-term facility for leg swelling shortness of breath and a BNP almost 4000. Patient does have any rales he has pretibial edema up to the prepatellar area. Patient will get screening labs chest x-ray diuretics and admission. Likely diagnosis is CHF exacerbation. Providing 30 minutes critical care service for this patient. Admission disposition pending Time: 14:17 Vital Signs Temperature 97.4 F L 04/15/18 14:01 Pulse Rate 70 04/15/18 14:01 Respiratory Rate 18 04/15/18 14:01 Blood Pressure 171/106 04/15/18 14:01 O2 Sat by Pulse Oximetry 98 04/15/18 14:01 Temperature 97.4 F L 04/15/18 14:01 Pulse Rate 69 04/15/18 14:06 Respiratory Rate 19 04/15/18 14:06 Blood Pressure 171/106 04/15/18 14:06 O2 Sat by Pulse Oximetry 99 04/15/18 14:06 Oxygen Delivery Oxygen Delivery Room Air
--- NOTE | 2018-04-15 14:29 | Emergency Department Note ---
Disposition Clinical Impression: Swelling of lower leg CHF (congestive heart failure) Qualifiers: Heart failure type: unspecified Heart failure chronicity: unspecified Qualified Code(s): I50.9 - Heart failure, unspecified Acute kidney failure Qualifiers: Acute renal failure type: unspecified Qualified Code(s): N17.9 - Acute kidney failure, unspecified Anemia Qualifiers: Anemia type: unspecified type Qualified Code(s): D64.9 - Anemia, unspecified Disposition: Admitted As Inpatient Condition: Fair Referrals: Fer Nur MD [Primary Care Provider] - Forms: ED Satisfaction Letter Time of Disposition: 15:16 General Adult HPI - General Chief complaint: ED Recheck/Abnormal Lab/Rx Stated complaint: abnormal labs Time Seen by Provider: 04/15/18 14:03 Source: EMS Mode of arrival: ambulatory Limitations: no limitations Nursing Notes Reviewed: Yes Vital Signs Reviewed: Yes - History of Present Illness HPI Narrative: 67-year-old male history of A. fib, CAD status post stent, congestive heart failure since for evaluation of lower leg swelling and abnormal labs. [facility] in [facility] due to an elevated BNP. Labs showed that his BMP was approximately 4000. Patient denies any chest pain or short of breath. No nausea vomiting or diaphoresis. Patient notes worsening lower leg swelling over the past week. Patient still continues to urinate. Nursing facility notes the patient has been noncompliant with his diet as well as medications. Patient denies any fevers or cough. Nursing facility notes that there is approximate 20 pound weight gain over the past month. Pain Scale: 0 - Related Data Home Medications Medication Instructions Recorded Confirmed Atorvastatin Calcium [Lipitor] 20 mg PO HS 01/11/17 03/16/18 Aspirin [Lo-Dose Aspirin EC] 81 mg PO DAILY 03/16/18 03/16/18 Brimonidine Tartrate [Alphagan P] 1 drop LEFT EYE BID 03/16/18 03/16/18 Cyclopentolate 1 drop LEFT EYE TID 03/16/18 03/16/18 Docusate Sodium [Dok] 100 mg PO BID 03/16/18 03/16/18 Furosemide [Lasix] 40 mg PO DAILY 03/16/18 03/16/18 Hydralazine HCl 50 mg PO TID 03/16/18 03/16/18 Isosorbide DInitrate [Isordil] 40 mg PO TID 03/16/18 03/16/18 Loperamide [Imodium] 2 mg PO DAILY PRN 03/16/18 03/16/18 Melatonin [Melatin] 6 mg PO HS 03/16/18 03/16/18 Metformin HCl [Glucophage] 1,000 mg PO DAILY 03/16/18 03/16/18 Polyethylene Glycol 3350 [MiraLAX 1 scoop PO DAILY 03/16/18 03/16/18 Powder Bulk 17.9 Oz] Potassium Chloride [K-Tab ER] 20 meq PO DAILY 03/16/18 03/16/18 PrednisoLONE Acetate 1% Opth 1 drop LEFT EYE QID 03/16/18 03/16/18 [PredFORTE 1%] Warfarin [Coumadin] 3.5 mg PO DAILY 03/16/18 03/16/18 Allergies Allergy/AdvReac Type Severity Reaction Status Date / Time No Known Allergies Allergy Verified 01/11/17 09:05 All systems ED: reviewed and negative except as stated. Constitutional: Denies: fever Cardiovascular: Denies: chest pain Respiratory: Denies: cough, dyspnea Gastrointestinal: Denies: abdominal pain, nausea, vomiting Past Medical History - Past Medical History Source: patient Medical history: Reports: atrial fibrillation, CHF, coronary artery disease, diabetes, hypertension, myocardial infarction, renal disease, other Psychiatric history: Reports: no psych history - Social History Smoking Status: Former smoker Smokeless Tobacco Status: No Alcohol use: Reports: none Drug use: Reports: none Physical Exam - General Limitations: no limitations General appearance: alert, in no apparent distress - Head Head exam: atraumatic, normocephalic, normal inspection - Eye Eye exam: Present: normal appearance - ENT ENT exam: normal exam, mucous membranes moist - Neck Neck exam: Present: normal inspection - Chest Chest inspection: Present: normal inspection, symmetric chest wall rise - Respiratory Respiratory exam: Present: other (Diffusely diminished with bibasilar Rales). Absent: respiratory distress - Cardiovascular Cardiovascular exam: Present: regular rate, normal rhythm. Absent: systolic murmur - Abdominal Exam Abdominal exam: Present: soft, Non-Tender, distention. Absent: guarding, rebound - Extremities Exam Extremities exam: Present: normal inspection, pedal edema (2-3+ pedal edema to the proximal mid [place]) - Back Exam Back exam: Present: normal inspection - Neurological Exam Neurological exam: Present: alert, oriented X3, CN II-XII intact - Skin Skin exam: Present: warm, dry, intact, normal color Course Course Narrative: Patient seen and examined. Patient does clinically have signs of congestive heart failure. Labs reviewed that were taken earlier today shows a BNP of proximally 4000. Patient kidney function is also worse than prior evaluations. Patient will get basic labs chest x-ray troponin. Patient will be diuresis will likely need continued diuresis as an inpatient. Vital Signs Temperature 97.4 F L 04/15/18 14:01 Pulse Rate 70 04/15/18 14:01 Respiratory Rate 18 04/15/18 14:01 Blood Pressure 171/106 04/15/18 14:01 O2 Sat by Pulse Oximetry 98 04/15/18 14:01 Temperature 97.4 F L 04/15/18 14:01 Pulse Rate 67 04/15/18 15:06 Respiratory Rate 17 04/15/18 15:06 Blood Pressure 148/81 04/15/18 15:06 O2 Sat by Pulse Oximetry 98 04/15/18 15:06 Oxygen Delivery Oxygen Delivery Room Air Medical Decision Making - [facility] Narrative Medical decision making narrative: Patient presents from [facility] for concerns of congestive heart failure. On exam the patient does have lower extremity distal edema which is symmetric. Patient also has been known to be noncompliant with his diet medications. Patient denies any chest penetrance of breath. A shunt did have an elevated BNP is obtained earlier was not repeated in the ED. Patient had basic electrolytes which were repeated and shows acute on chronic kidney disease. Patient did have elevated troponin with no acute EKG changes. Likely demand ischemia from the patient's congestive heart failure. Echo obtained approximately 3 months prior showed EF 35%. Patient did receive an aspirin for the elevated troponin. Patient's hemoglobin does appear to be stable with chronic anemia. Patient does not require any noninvasive positive pressure ventilation for respiratory support. Patient will be admitted to the hospital service for further diuresis and electrolyte monitoring. Serial troponins. - Medical Records Medical records reviewed: Yes I reviewed the patient's medical records. 01/2018 Impressions: LVEF 35%. Global left ventricular systolic dysfunction. Moderate left ventricular diastolic dysfunction. Indeterminate diastolic function. Mildly dilated right ventricle with reduced function. Mild pulmonary hypertension. There is a small pericardial effusion present. There is no echocardiographic evidence of tamponade. No significant valvular dysfunction. - Lab Data Lab results reviewed: Yes I reviewed the patient's lab results. Result diagrams: 04/15/18 14:28 04/15/18 14:28 Lab Results 04/15/18 04/15/18 04/15/18 Range/Units 14:28 14:28 14:28 WBC 4.9 (4.3-11.1) K/mcL RBC 3.19 L (4.19-5.50) M/mcL Hgb 9.3 L (12.9-16.9) g/dL Hct 30.2 L (37.5-50.1) % MCV 94.7 (83.0-100.0) fL MCH 29.2 (28.0-33.3) pg MCHC 30.8 L (31.6-35.5) g/dL RDW 17.8 H (11.5-14.5) % Plt Count 197 (140-400) K/mcL MPV 10.7 (9.4-12.4) fL Immature Gran % 0.4 (0-4) % Seg Neutrophils % 59.0 % Lymphocytes % 26.3 % Monocytes % 10.5 % Eosinophils % 3.4 % Basophils % 0.4 % Neutrophils # 2.9 (1.6-8.9) K/mcL Lymphocytes # 1.3 (0.6-4.6) K/mcL Monocytes # 0.5 (0.0-1.3) K/mcL Eosinophils # 0.2 (0.0-0.6) K/mcL Basophils # 0.0 (0.0-0.2) K/mcL PT 11.4 (9.4-12.1) Seconds INR 1.0 Sodium 140 (136-145) mEq/L Potassium 4.4 (3.5-5.1) mEq/L Chloride 111 H (98-107) mEq/L Carbon Dioxide 23 (23-29) mEq/L BUN 47 H (8-23) mg/dL Creatinine 2.19 H (0.70-1.30) mg/dL Est GFR ( Amer) 37 L (> 60) Est GFR (Non-Af Amer) 30 L (> 60) BUN/Creatinine Ratio 21 (6-26) Glucose 104 (70-105) mg/dL Calculated Osmolality 303 H (280-300) Calcium 8.5 L (8.6-10.3) mg/dL Troponin I 0.04 H* (< 0.04) ng/mL - Radiology Data Radiology results reviewed: Yes I reviewed the patient's radiology results. Chest X-Ray 04/15/18 14:14 IMPRESSION: 1. Left basilar consolidation or atelectasis. 2. Small-moderate left pleural effusion. Trace right pleural effusion. D/ / Migel Power MD / Migel Power MD Interpreting Provider: Migel Power MD - EKG Data EKG #1 EKG attestation: Yes I reviewed and interpreted this EKG. EKG shows normal: sinus rhythm Rate: normal Rhythm: NSR [place]/QRS: left axis deviation T wave inversions noted in: v1, v2, v3, v4 Interpretation: no acute changes, unchanged when compared to prior tracing (date ) (03/16/2018), nonspecific ST-T wave changes SJude - Gunjan Situation: Demographics Background: Presenting Complaint Assessment: Vital Signs, Course and respsone to treatment, Patient/Family Expectation Recommendation: Barrier(s) to disposition, Recommendation based on pending studies, treatments, or consults S.B.Chavez Report Given to: Dr. Kizzy Hollins Repor Time: 15:16
[2018-04-15 14:42] LABS: Basophils % 0.4 %; Eosinophils # 0.2 K/mcL (0.0-0.6); Eosinophils % 3.4 %; Hematocrit 30.2 % (37.5-50.1); Hemoglobin 9.3 g/dL (12.9-16.9); Immature Granulocytes % 0.4 % (0-4); Lymphocytes # 1.3 K/mcL (0.6-4.6); Lymphocytes % 26.3 %; Mean Corpuscular HGB Conc 30.8 g/dL (31.6-35.5); Mean Corpuscular Hemoglobin 29.2 pg (28.0-33.3); Mean Corpuscular Volume 94.7 fL (83.0-100.0); Mean Platelet Volume 10.7 fL (9.4-12.4); Monocytes # 0.5 K/mcL (0.0-1.3); Monocytes % 10.5 %; Neutrophils # 2.9 K/mcL (1.6-8.9); Platelet Count 197 K/mcL (140-400); Red Blood Count 3.19 M/mcL (4.19-5.50); Red Cell Distribution Width 17.8 % (11.5-14.5)
[2018-04-15 14:48] LABS: Prothrombin Time 11.4 Seconds (9.4-12.1)
[2018-04-15 15:08] LABS: Troponin I 0.04 ng/mL (< 0.04)
[2018-04-15 15:09] LABS: Calcium 8.5 mg/dL (8.6-10.3); Potassium 4.4 mEq/L (3.5-5.1)
[2018-04-15 15:24] LABS: Bilirubin,Urine Negative (Negative); Blood,Urine Negative (Negative); Clarity,Urine Clear (Clear); Color,Urine Yellow (Yellow); Glucose,Urine (UA) Normal (Normal); Ketones,Urine Negative (Negative); Leukocyte Esterase,Urine Negative (Negative); Nitrite,Urine Negative (Negative); PH,Urine 5.5 pH Units (5.0-8.0); Protein,Urine 100 mg/dL (Neg-Trace); Specific Gravity,Urine 1.006 (1.010-1.025); Urobilinogen,Urine Normal (Normal)
[2018-04-15 15:27] LABS: Bacteria,Urine None Seen per hpf (None-Few); Hyaline Casts,Urine None Seen per lpf (None-Few); RBC,Urine 0-3 per hpf (0-3); Squamous Epithelial Cell,Urine None Seen per lpf (None-Few); WBC,Urine 0-3 per hpf (0-3)
[2018-04-15] MEDS ORDERED: traMADol 50 MG TABLET PO PRN (16:47)
[2018-04-15] MEDS ORDERED: Acetaminophen 325 MG TABLET PO PRN (16:47)
[2018-04-15] MEDS ORDERED: Naloxone 0.4 MG/ML INJ IVP PRN (16:47)
--- NOTE | 2018-04-15 17:05 | Internal Med History&Physical ---
<Ozzie Pal - Last Filed: 04/15/18 17:02> Date of Encounter: 04/15/18 Time of Encounter: 17:02 Internal Medicine - H&P: HPI Admitted From: Long-term Nursing Facility Plans for Post Hospital Care: Transfer Assisted Facility History of present illness: Mr. Nunn is a 67-year-old male history of A. fib, CAD status post stent, congestive heart failure presented for evaluation of lower leg swelling and abnormal labs. Patient was sent in from [facility] due to elevated BNP. Labs showed that his BMP was approximately 4000 today. Patient denies any chest pain or short of breath. No nausea vomiting or diaphoresis. Patient notes worsening lower leg swelling over the past week. Patient still continues to urinate. Nursing facility notes the patient has been noncompliant with his diet as well as medications. Patient denies any fevers or cough. Nursing facility notes that there is approximate 20 pound weight gain over the past month. At the ED, pt was noted to have high BP. Both legs are swelling. He is clearly volume overloaded, pt will be admitted as observation for further management. Past Med Surg Social Fam HX - Past Medical History Medical history: atrial fibrillation, CHF, coronary artery disease, diabetes, hypertension, myocardial infarction, renal disease, other Additional medical history: anemia, mycosis Psychiatric history: no psych history - Past Surgical History Additional surgical history: stents x3, bowel, colostomy and reversal - Social History Smoking Status: Former smoker Smokeless Tobacco Status: No Alcohol use: none Drug use: none - Family History Mother Living Status: Age at : 80 Cause of : "old age" Internal Medicine - H&P: Meds Atorvastatin Calcium [Lipitor] 20 mg PO HS 01/11/17 [History] Aspirin [Lo-Dose Aspirin EC] 81 mg PO DAILY 03/16/18 [History] Brimonidine Tartrate [Alphagan P] 1 drop LEFT EYE BID 03/16/18 [History] Docusate Sodium [Dok] 100 mg PO BID 03/16/18 [History] Furosemide [Lasix] 40 mg PO BID 03/16/18 [History] Hydralazine HCl 50 mg PO TID 03/16/18 [History] Isosorbide DInitrate [Isordil] 40 mg PO TID 03/16/18 [History] Loperamide [Imodium] 2 mg PO DAILY PRN 03/16/18 [History] Melatonin [Melatin] 3 mg PO HS 03/16/18 [History] Metformin HCl [Glucophage] 1,000 mg PO DAILY 03/16/18 [History] Polyethylene Glycol 3350 [MiraLAX Powder Bulk 17.9 Oz] 1 scoop PO DAILY [History] Potassium Chloride [K-Tab ER] 20 meq PO DAILY 03/16/18 [History] PrednisoLONE Acetate 1% Opth [PredFORTE 1%] 1 drop LEFT EYE QID 03/16/18 [ History] Warfarin [Coumadin] 3.5 mg PO DAILY 03/16/18 [History] Calcium Carbonate [Tums] 1,000 mg PO HS 04/15/18 [History] Insulin LISPRO [Humalog] 0 unit SQ TIDWM 04/15/18 [History] Ipratropium/Albuterol Neb [Duoneb] 3 ml IH Q6HR PRN 04/15/18 [History] 3 Allergy/AdvReac Type Severity Reaction Status Date / Time No Known Allergies Allergy Verified 01/11/17 09:05 All Systems PM: A 10-system review of systems was performed and is negative for pertinent findings except as documented above in the HPI. Review of systems: REVIEW OF SYSTEMS: CONSTITUTIONAL: No weight loss, fever, chills, weakness or fatigue. HEENT: Eyes: No visual loss, blurred vision, double vision or yellow sclerae. Ears, Nose, Throat: No hearing loss, sneezing, congestion, runny nose or sore throat. SKIN: No rash or itching. CARDIOVASCULAR: see HPI. RESPIRATORY: No shortness of breath, cough or sputum. GASTROINTESTINAL: No anorexia, nausea, vomiting or diarrhea. No abdominal pain or blood. GENITOURINARY: No dysuria, urgency, or frequency. NEUROLOGICAL: No headache, dizziness, syncope, paralysis, ataxia, numbness or tingling in the extremities. No change in bowel or bladder control. MUSCULOSKELETAL: No muscle, back pain, joint pain or stiffness. HEMATOLOGIC: No anemia, bleeding or bruising. LYMPHATICS: No enlarged nodes. No history of splenectomy. PSYCHIATRIC: No history of depression or anxiety. ENDOCRINOLOGIC: No reports of sweating, cold or heat intolerance. No polyuria or polydipsia. - Constitutional Vitals: Temp Pulse Resp BP Pulse Ox 97.5 F L 65 16 163/89 97 04/15/18 16:23 04/15/18 16:23 04/15/18 16:23 04/15/18 16:23 04/15/18 16:23 General appearance: Present: A&O X 3 Exam: PHYSICAL EXAMINATION: GENERAL APPEARANCE: The patient is alert, oriented and in no acute distress. HEENT: Head is normocephalic. The sinuses are nontender. Pupils are equal and reactive. The nares are patent. Oropharynx clear without lesions. NECK: Supple without lymphadenopathy. HEART: Regular rate and rhythm. LUNGS: No crackles or wheezes are heard. ABDOMEN: Soft, nontender, nondistended with good bowel sounds heard. Inguinal area is normal. EXTREMITIES: 2+ pitting edema on BLE. NEUROLOGICAL: Gross nonfocal. SKIN: Warm and dry without any rash. Internal Med - H&P Results - Labs CBC & Chem 7: 04/15/18 14:28 04/15/18 14:28 - Assessment and plan (1) Acute exacerbation of CHF (congestive heart failure) Current Visit: Yes Status: Acute Assessment and plan: 87-year-old male with past medical history of CHF, atrial fibrillation, hypertension, diabetes, and CAD presented with worsening swelling of bilateral lower extremities. BNP >4000 on admission. Patient was noted to be noncompliant was treatment. Blood pressure was significantly elevated at the ED , INR was subtherapeutic also the patient was on Coumadin. - Last TTE on 01/24/2018 showed EF 35%, moderately impaired LV systolic function. He is not on standard treatment for systolic CHF, he is on Lasix 40 mg daily, isosorbide and hydralazine for BP control at home. We will start the patient on Entresto, and the metoprolol, increase the Lasix dose to 40 mg twice a day IV. Low sodium diet, fluid restrictions, strict I's and O's, and daily weight. - Trigger for exacerbations likely medication and diet noncompliance, no indication to repeat TTE at this point. Qualifiers: Heart failure type: combined systolic and diastolic Qualified Code(s): I50.43 - Acute on chronic combined systolic (congestive) and diastolic ( congestive) heart failure (2) Atrial fibrillation Current Visit: No Status: Chronic Assessment and plan: INR subtherapeutic, continue home dose Coumadin, rate controlled. Qualifiers: Atrial fibrillation type: chronic Qualified Code(s): I48.2 - Chronic atrial fibrillation (3) Diabetes mellitus Current Visit: No Status: Chronic Assessment and plan: Hold home medication metformin, started patient on insulin sliding scale. Qualifiers: Diabetes mellitus type: type 2 Diabetes mellitus handbook writer insulin use: without handbook writer use Diabetes mellitus complication status: without complication Qualified Code(s): E11.9 - Type 2 diabetes mellitus without complications (4) Chronic kidney disease Current Visit: No Status: Chronic Assessment and plan: Baseline creatinine 1.6-1.8, today creatinine 2.1, likely due to volume overload , continue IV Lasix, continue monitoring renal function panel. Qualifiers: Chronic kidney disease stage: stage 2 (mild) Qualified Code(s): N18.2 - Chronic kidney disease, stage 2 (mild) (5) Hypertension Current Visit: No Status: Chronic Assessment and plan: BP poorly controlled, continue isosorbide/hydralazine, adding entresto and metoprolol. Continue monitoring BP. Qualifiers: Hypertension type: essential hypertension Qualified Code(s): I10 - Essential (primary) hypertension (6) DVT prophylaxis Current Visit: Yes Status: Acute Assessment and plan: Continue Coumadin. - Time Spent With Patient Total time spent is greater than 50% in coordination of care (as documented) at patient's floor/unit and/or counseling patient: Greater than 35 minutes <Deidre Hoffmann - Last Filed: 04/15/18 18:56> Date of Encounter: 04/15/18 Internal Medicine - H&P: HPI History of present illness: Mr. Nunn is a 67 year old male All Systems PM: A 10-system review of systems was performed and is negative for pertinent findings except as documented above in the HPI. - Constitutional Vitals: Temp Pulse Resp BP Pulse Ox 97.5 F L 65 16 163/89 97 04/15/18 16:23 04/15/18 16:23 04/15/18 16:23 04/15/18 16:23 04/15/18 16:23 Internal Med - H&P Results - Labs CBC & Chem 7: 04/15/18 14:28 04/15/18 14:28 - Attending Attestation I saw and examined this patient independently, and my medical decision making was reviewed with the NETWORK SUPPORT ENGINEER on 2017. I agree with the documented findings, assessment and treatment plan as described in the progress note or discharge summary. - Time Spent With Patient Total time spent is greater than 50% in coordination of care (as documented) at patient's floor/unit and/or counseling patient:
[2018-04-15] MEDS ORDERED: *HR* Dextrose 50 % in Water (Syg) 50 ML SYRINGE IVP PRN (17:18)
[2018-04-15] MEDS ORDERED: D5% in Water 1,000 ML IVC PRN (17:18)
[2018-04-15] MEDS ORDERED: Dextrose Gel 15 GM/37.5 ML TUBE PO PRN ×2 (17:18)
[2018-04-15] MEDS: Metoprolol XL (24 HR) Succ 25 MG TAB.ER.24H PO SCH (18:26)
[2018-04-15] MEDS: *HR* Warfarin 4 MG TABLET PO SCH (18:26)
[2018-04-15] MEDS: *HR* Heparin 5,000 UNIT/ML VIAL SQ SCH (18:26)
[2018-04-15] MEDS: Furosemide 40 MG/4 ML VIAL IVP SCH (20:44)
[2018-04-15] MEDS: hydrALAZINE 25 MG TABLET PO SCH (20:44)
[2018-04-15] MEDS: SACUBITRIL/VALSARTAN 24/26 MG TABLET PO SCH (20:44)
[2018-04-15] MEDS: Insulin LISPRO 300 UNITS/3 ML VIAL SQ SCH (22:07)
[2018-04-16 03:15] LABS: Basophils % 0.2 %; Eosinophils # 0.2 K/mcL (0.0-0.6); Eosinophils % 4.1 %; Hematocrit 29.2 % (37.5-50.1); Hemoglobin 9.1 g/dL (12.9-16.9); Immature Granulocytes % 0.2 % (0-4); Lymphocytes % 25.2 %; Mean Corpuscular HGB Conc 31.2 g/dL (31.6-35.5); Mean Platelet Volume 10.8 fL (9.4-12.4); Monocytes # 0.3 K/mcL (0.0-1.3); Monocytes % 8.3 %; Neutrophils # 2.6 K/mcL (1.6-8.9); Platelet Count 189 K/mcL (140-400); Red Blood Count 3.14 M/mcL (4.19-5.50)
[2018-04-16 03:22] LABS: INR 1.1; Prothrombin Time 12.4 Seconds (9.4-12.1)
[2018-04-16 03:35] LABS: Albumin 2.9 g/dL (3.5-5.7); Albumin/Globulin Ratio 1.4 (1.1-2.2); Bilirubin,Total 0.4 mg/dL (0.3-1.0); Calcium 8.3 mg/dL (8.6-10.3); Globulin 2.1 g/dL (2.4-3.5); Magnesium 1.6 mg/dL (1.6-2.6); Potassium 4.5 mEq/L (3.5-5.1)
[2018-04-16] MEDS: *HR* Heparin 5,000 UNIT/ML VIAL SQ SCH ×2 (06:12→17:07)
[2018-04-16] MEDS: SACUBITRIL/VALSARTAN 24/26 MG TABLET PO SCH ×2 (08:02→20:11)
[2018-04-16] MEDS: hydrALAZINE 25 MG TABLET PO SCH ×3 (08:02→20:11)
[2018-04-16] MEDS: Insulin LISPRO 300 UNITS/3 ML VIAL SQ SCH ×4 (08:02→21:46)
[2018-04-16] MEDS: Metoprolol XL (24 HR) Succ 25 MG TAB.ER.24H PO SCH (08:02)
[2018-04-16] MEDS: Furosemide 40 MG/4 ML VIAL IVP SCH ×2 (08:02→17:07)
[2018-04-16] MEDS ORDERED: *HR* Warfarin 1 MG TABLET PO SCH (09:00)
[2018-04-16] MEDS: Aspirin Enteric Coated 81 MG Tablet PO SCH (09:50)
[2018-04-16] MEDS: PrednisoLONE Acetate 1% Opth 5 ML BOTTLE LEFT EYE SCH ×4 (09:51→20:12)
[2018-04-16] MEDS ORDERED: Ipratropium/Albuterol Neb 3 ML IH PRN (10:00)
--- NOTE | 2018-04-16 11:23 | Internal Med Progress Note ---
Hospitalist Progress Note - Encounter Date of Encounter: 04/16/18 Time of Encounter: 11:20 - Subjective Interval History: Pt has no complaints. He has been urinating a lot. - Exam Vitals: Temp Pulse Resp BP Pulse Ox 97.5 F L 62 20 149/80 98 04/16/18 07:08 04/16/18 07:08 04/16/18 07:08 04/16/18 07:08 04/16/18 08:00 Exam: PHYSICAL EXAMINATION: GENERAL APPEARANCE: The patient is alert, oriented and in no acute distress. HEENT: Head is normocephalic. The sinuses are nontender. Pupils are equal and reactive. The nares are patent. Oropharynx clear without lesions. NECK: Supple without lymphadenopathy. HEART: Regular rate and rhythm. LUNGS: No crackles or wheezes are heard. ABDOMEN: Soft, nontender, nondistended with good bowel sounds heard. Inguinal area is normal. EXTREMITIES: 2+ pitting edema at BLE. NEUROLOGICAL: Gross nonfocal. SKIN: Warm and dry without any rash. - Assessment and Plan (1) Acute exacerbation of CHF (congestive heart failure) Current Visit: Yes Status: Acute Assessment and Plan: 87-year-old male with past medical history of CHF, atrial fibrillation, hypertension, diabetes, and CAD presented with worsening swelling of bilateral lower extremities. BNP >4000 on admission. Patient was noted to be noncompliant was treatment. Blood pressure was significantly elevated at the ED , INR was subtherapeutic also the patient was on Coumadin. - Last TTE on 01/24/2018 showed EF 35%, moderately impaired LV systolic function. He is not on standard treatment for systolic CHF, he is on Lasix 40 mg daily, isosorbide and hydralazine for BP control at home. started the patient on Entresto, and metoprolol, increase the Lasix dose to 40 mg twice a day IV. Low sodium diet, fluid restrictions, strict I's and O's, and daily weight. - Trigger for exacerbations likely medication and diet noncompliance, no indication to repeat TTE at this point. (2) Atrial fibrillation Current Visit: No Status: Chronic Assessment and Plan: INR subtherapeutic, continue home dose Coumadin, rate controlled. (3) Diabetes mellitus Current Visit: No Status: Chronic Assessment and Plan: Hold home medication metformin, continue insulin sliding scale. (4) Chronic kidney disease Current Visit: No Status: Chronic Assessment and Plan: Baseline creatinine 1.6-1.8, today creatinine 2.1, likely due to volume overload , continue IV Lasix, continue monitoring renal function panel. (5) Hypertension Current Visit: No Status: Chronic Assessment and Plan: BP poorly controlled, continue isosorbide/hydralazine, continue entresto and metoprolol. Continue monitoring BP. (6) DVT prophylaxis Current Visit: Yes Status: Acute Assessment and Plan: Continue Coumadin. - Time Spent with Patient Total time spent is greater than 50% in coordination of care (as documented) at patient's floor/unit and/or counseling patient: Greater than 35 minutes Plan of Care Discussed with: patient Internal Medicine: Result - Labs CBC & Chem 7: 04/16/18 03:04 04/16/18 03:04 Labs: Cardiac Enzymes 04/16/18 Range/Units 08:52 Troponin I 0.04 H* (< 0.04) ng/mL - ABG Interpretation ABG results: PT/INR, D-dimer PT 12.4 Seconds (9.4-12.1) H 04/16/18 03:04 Consult Discharge Plan - Plan Referrals: Fer Nur MD [Primary Care Provider] - (1) Acute exacerbation of CHF (congestive heart failure) Qualifiers: Heart failure type: combined systolic and diastolic Qualified Code(s): I50.43 - Acute on chronic combined systolic (congestive) and diastolic ( congestive) heart failure (2) Atrial fibrillation Qualifiers: Atrial fibrillation type: chronic Qualified Code(s): I48.2 - Chronic atrial fibrillation (3) Diabetes mellitus Qualifiers: Diabetes mellitus type: type 2 Diabetes mellitus terminal system operator insulin use: without terminal system operator use Diabetes mellitus complication status: without complication Qualified Code(s): E11.9 - Type 2 diabetes mellitus without complications (4) Chronic kidney disease Qualifiers: Chronic kidney disease stage: stage 2 (mild) Qualified Code(s): N18.2 - Chronic kidney disease, stage 2 (mild) (5) Hypertension Qualifiers: Hypertension type: essential hypertension Qualified Code(s): I10 - Essential (primary) hypertension
[2018-04-16] MEDS: Spironolactone 25 MG TABLET PO SCH (15:46)
--- NOTE | 2018-04-16 16:48 | Electrocardiograph Report ---
[address] [address] Test Date: 2018-04-15 Pat Name: Gary Nunn Department: 104 Room: 3B46 Gender: M Ell Teacher: : 1950 Requested By: Kale Huang Order Number: [id number] Reading MD: Elian Purvis Measurements Intervals [place] Rate: 68 P: 67 MI: 167 QRS: -11 QRSD: 153 T: -25 QT: 435 QTc: 453 Interpretive Statements SINUS RHYTHM RIGHT BUNDLE BRANCH BLOCK Electronically Signed On 04-16-2018 16:46:58 EDT by Elian Purvis
[2018-04-16] MEDS: *HR* Warfarin 4 MG TABLET PO SCH (17:07)
[2018-04-16] MEDS ORDERED: Ondansetron 4 MG/2 ML VIAL IVP PRN (18:30)
[2018-04-16] MEDS: Melatonin 3 MG TABLET PO SCH (20:11)
[2018-04-17 05:17] LABS: Basophils % 0.4 %; Eosinophils # 0.2 K/mcL (0.0-0.6); Eosinophils % 4.4 %; Hematocrit 30.8 % (37.5-50.1); Hemoglobin 9.4 g/dL (12.9-16.9); Immature Granulocytes % 0.4 % (0-4); Lymphocytes % 20.2 %; Mean Corpuscular HGB Conc 30.5 g/dL (31.6-35.5); Mean Corpuscular Hemoglobin 28.1 pg (28.0-33.3); Mean Corpuscular Volume 92.2 fL (83.0-100.0); Mean Platelet Volume 11.4 fL (9.4-12.4); Monocytes # 0.5 K/mcL (0.0-1.3); Neutrophils # 3.3 K/mcL (1.6-8.9); Platelet Count 200 K/mcL (140-400); Red Blood Count 3.34 M/mcL (4.19-5.50); Red Cell Distribution Width 17.6 % (11.5-14.5); Segmented Neutrophils % 65.6 %
[2018-04-17 05:36] LABS: Calcium 8.4 mg/dL (8.6-10.3); Potassium 4.4 mEq/L (3.5-5.1)
[2018-04-17 05:40] LABS: INR 1.2; Prothrombin Time 13.2 Seconds (9.4-12.1)
[2018-04-17] MEDS: *HR* Heparin 5,000 UNIT/ML VIAL SQ SCH ×2 (06:21→17:04)
[2018-04-17] MEDS: Furosemide 40 MG/4 ML VIAL IVP SCH ×3 (08:09→21:35)
[2018-04-17] MEDS: PrednisoLONE Acetate 1% Opth 5 ML BOTTLE LEFT EYE SCH ×4 (08:09→21:52)
[2018-04-17] MEDS: Metoprolol XL (24 HR) Succ 25 MG TAB.ER.24H PO SCH (08:10)
[2018-04-17] MEDS: Insulin LISPRO 300 UNITS/3 ML VIAL SQ SCH ×4 (08:10→22:04)
[2018-04-17] MEDS: Aspirin Enteric Coated 81 MG Tablet PO SCH (08:10)
[2018-04-17] MEDS: Spironolactone 25 MG TABLET PO SCH (08:10)
[2018-04-17] MEDS: SACUBITRIL/VALSARTAN 24/26 MG TABLET PO SCH ×2 (08:10→21:34)
[2018-04-17] MEDS: hydrALAZINE 25 MG TABLET PO SCH ×3 (08:10→21:33)
[2018-04-17] MEDS: Isosorbide MONOnitrate (24 HR) 30 MG TAB.ER.24H PO SCH (10:59)
[2018-04-17] MEDS: metOLazone 5 MG TABLET PO SCH (12:03)
--- NOTE | 2018-04-17 14:21 | Internal Med Progress Note ---
Hospitalist Progress Note - Encounter Date of Encounter: 04/17/18 Time of Encounter: 14:19 - Subjective Interval History: Pt has no complaints. He has been urinating a lot. - Exam Vitals: Temp Pulse Resp BP Pulse Ox 97.5 F L 56 18 131/69 96 04/17/18 11:29 04/17/18 11:29 04/17/18 11:29 04/17/18 11:29 04/17/18 11:29 Exam: PHYSICAL EXAMINATION: GENERAL APPEARANCE: The patient is alert, oriented and in no acute distress. HEENT: Head is normocephalic. The sinuses are nontender. Pupils are equal and reactive. The nares are patent. Oropharynx clear without lesions. NECK: Supple without lymphadenopathy. HEART: Regular rate and rhythm. LUNGS: No crackles or wheezes are heard. ABDOMEN: Soft, nontender, nondistended with good bowel sounds heard. Inguinal area is normal. EXTREMITIES: Without cyanosis, clubbing or edema. NEUROLOGICAL: Gross nonfocal. SKIN: Warm and dry without any rash. - Assessment and Plan (1) Acute exacerbation of CHF (congestive heart failure) Current Visit: Yes Status: Acute Assessment and Plan: 87-year-old male with past medical history of CHF, atrial fibrillation, hypertension, diabetes, and CAD presented with worsening swelling of bilateral lower extremities. BNP >4000 on admission. Patient was noted to be noncompliant was treatment. Blood pressure was significantly elevated at the ED , INR was subtherapeutic also the patient was on Coumadin. - Last TTE on 01/24/2018 showed EF 35%, moderately impaired LV systolic function. He is not on standard treatment for systolic CHF, he is on Lasix 40 mg daily, isosorbide and hydralazine for BP control at home. - Trigger for exacerbations likely medication and diet noncompliance, no indication to repeat TTE at this point. - Low sodium diet, fluid restrictions, strict I's and O's, and daily weight. - -360ml/24h, increase Lasix to 80 mg BID, add Metolazone, started pt on Aldactone. continue to monitor Is/Os, - increase isosorbide to achieve better BP control. (2) Atrial fibrillation Current Visit: No Status: Chronic Assessment and Plan: INR subtherapeutic, continue home dose Coumadin, rate controlled. (3) Diabetes mellitus Current Visit: No Status: Chronic Assessment and Plan: Hold home medication metformin, continue insulin sliding scale. (4) Chronic kidney disease Current Visit: No Status: Chronic Assessment and Plan: Baseline creatinine 1.6-1.8, today creatinine 1.96, likely due to volume overload, continue IV Lasix, continue monitoring renal function panel. (5) Hypertension Current Visit: No Status: Chronic Assessment and Plan: BP poorly controlled,BP meds adjusted as above, Continue monitoring BP. (6) DVT prophylaxis Current Visit: Yes Status: Acute Assessment and Plan: Continue Coumadin. - Time Spent with Patient Total time spent is greater than 50% in coordination of care (as documented) at patient's floor/unit and/or counseling patient: Greater than 35 minutes Plan of Care Discussed with: patient Internal Medicine: Result - Labs CBC & Chem 7: 04/17/18 04:27 04/17/18 04:27 Labs: Short CBC 04/17/18 Range/Units 04:27 WBC 5.0 (4.3-11.1) K/mcL Hgb 9.4 L (12.9-16.9) g/dL Hct 30.8 L (37.5-50.1) % Plt Count 200 (140-400) K/mcL Neutrophils # 3.3 (1.6-8.9) K/mcL BMP 04/17/18 04:27 Sodium 141 Potassium 4.4 Chloride 112 H Carbon Dioxide 21 L BUN 46 H Creatinine 1.96 H Glucose 185 H Calcium 8.4 L - ABG Interpretation ABG results: PT/INR, D-dimer PT 13.2 Seconds (9.4-12.1) H 04/17/18 04:27 Consult Discharge Plan - Plan Referrals: Fer Nur MD [Primary Care Provider] - (1) Acute exacerbation of CHF (congestive heart failure) Qualifiers: Heart failure type: combined systolic and diastolic Qualified Code(s): I50.43 - Acute on chronic combined systolic (congestive) and diastolic ( congestive) heart failure (2) Atrial fibrillation Qualifiers: Atrial fibrillation type: chronic Qualified Code(s): I48.2 - Chronic atrial fibrillation (3) Diabetes mellitus Qualifiers: Diabetes mellitus type: type 2 Diabetes mellitus senior living insulin use: without oil heaterman use Diabetes mellitus complication status: without complication Qualified Code(s): E11.9 - Type 2 diabetes mellitus without complications (4) Chronic kidney disease Qualifiers: Chronic kidney disease stage: stage 2 (mild) Qualified Code(s): N18.2 - Chronic kidney disease, stage 2 (mild) (5) Hypertension Qualifiers: Hypertension type: essential hypertension Qualified Code(s): I10 - Essential (primary) hypertension
[2018-04-17] MEDS: *HR* Warfarin 4 MG TABLET PO SCH (17:05)
[2018-04-17] MEDS: Melatonin 3 MG TABLET PO SCH (21:32)
[2018-04-18] MEDS: *HR* Heparin 5,000 UNIT/ML VIAL SQ SCH (05:49)
[2018-04-18 06:14] LABS: Basophils % 0.2 %; Eosinophils # 0.2 K/mcL (0.0-0.6); Hematocrit 31.4 % (37.5-50.1); Hemoglobin 9.7 g/dL (12.9-16.9); Immature Granulocytes % 0.6 % (0-4); Lymphocytes # 1.1 K/mcL (0.6-4.6); Lymphocytes % 20.6 %; Mean Corpuscular HGB Conc 30.9 g/dL (31.6-35.5); Mean Corpuscular Hemoglobin 28.4 pg (28.0-33.3); Mean Corpuscular Volume 92.1 fL (83.0-100.0); Mean Platelet Volume 11.3 fL (9.4-12.4); Monocytes # 0.5 K/mcL (0.0-1.3); Monocytes % 9.8 %; Neutrophils # 3.5 K/mcL (1.6-8.9); Platelet Count 197 K/mcL (140-400); Red Blood Count 3.41 M/mcL (4.19-5.50); Red Cell Distribution Width 17.7 % (11.5-14.5); Segmented Neutrophils % 65.8 %
[2018-04-18 06:21] LABS: INR 1.3
[2018-04-18 06:34] LABS: Calcium 8.5 mg/dL (8.6-10.3); Potassium 4.4 mEq/L (3.5-5.1)
[2018-04-18 07:42] VITALS: BP 180/91
[2018-04-18] MEDS: Furosemide 40 MG/4 ML VIAL IVP SCH (08:39)
[2018-04-18] MEDS: PrednisoLONE Acetate 1% Opth 5 ML BOTTLE LEFT EYE SCH (08:39)
[2018-04-18] MEDS: Insulin LISPRO 300 UNITS/3 ML VIAL SQ SCH (08:40)
[2018-04-18] MEDS: Spironolactone 25 MG TABLET PO SCH (08:42)
[2018-04-18] MEDS: hydrALAZINE 25 MG TABLET PO SCH (08:42)
[2018-04-18] MEDS: Aspirin Enteric Coated 81 MG Tablet PO SCH (08:42)
[2018-04-18] MEDS: metOLazone 5 MG TABLET PO SCH (08:43)
[2018-04-18] MEDS: Isosorbide MONOnitrate (24 HR) 30 MG TAB.ER.24H PO SCH (08:43)
[2018-04-18] MEDS: Metoprolol XL (24 HR) Succ 25 MG TAB.ER.24H PO SCH (08:43)
[2018-04-18] MEDS: SACUBITRIL/VALSARTAN 24/26 MG TABLET PO SCH (08:43)
--- NOTE | 2018-04-18 11:08 | Discharge Summary ---
- NOTES TO OUTPATIENT PROVIDER Notes to Outpatient Provider: f/u with PCP within a week. Orders not resulted at time of discharge: Pending orders 04/18/18 08:00 MRSA Surveillance Screen [MOLMIC] Routine Date of Encounter: 04/18/18 Time of Encounter: 11:03 - Discharge Diagnosis (1) Acute exacerbation of CHF (congestive heart failure) Priority: Primary Status: Acute Qualifiers: Heart failure type: combined systolic and diastolic Qualified Code(s): I50.43 - Acute on chronic combined systolic (congestive) and diastolic ( congestive) heart failure (2) Atrial fibrillation Priority: Secondary Status: Chronic Qualifiers: Atrial fibrillation type: chronic Qualified Code(s): I48.2 - Chronic atrial fibrillation (3) Diabetes mellitus Priority: Secondary Status: Chronic Qualifiers: Diabetes mellitus type: type 2 Diabetes mellitus long term care pharmacist insulin use: without long term care pharmacist use Diabetes mellitus complication status: without complication Qualified Code(s): E11.9 - Type 2 diabetes mellitus without complications (4) Chronic kidney disease Priority: Secondary Status: Chronic Qualifiers: Chronic kidney disease stage: stage 2 (mild) Qualified Code(s): N18.2 - Chronic kidney disease, stage 2 (mild) (5) Hypertension Priority: Secondary Status: Chronic Qualifiers: Hypertension type: essential hypertension Qualified Code(s): I10 - Essential (primary) hypertension (6) DVT prophylaxis Priority: Primary Status: Acute Hospital course: Mr. Nunn is a 67-year-old male history of A. fib, CAD status post stent, congestive heart failure presented for evaluation of lower leg swelling and abnormal labs. Patient was sent in from [facility] due to elevated BNP. Labs showed that his BMP was approximately 4000 today. Patient denies any chest pain or short of breath. No nausea vomiting or diaphoresis. Patient notes worsening lower leg swelling over the past week. Patient still continues to urinate. Nursing facility notes the patient has been noncompliant with his diet as well as medications. Patient denies any fevers or cough. Nursing facility notes that there is approximate 20 pound weight gain over the past month. At the ED, pt was noted to have high BP. Both legs are swelling. He is clearly volume overloaded, pt was admitted for further management. Patient was placed on IV Lasix, Entresto, Aldactone, and metoprolol, volume status has improved. His weight has been back to his baseline. She will be discharged back to the [facility] today. He will continue current treatment for his CHF. He was instructed to follow-up PCP as scheduled. Discharge discussed with: patient Time spent discussing smoking cessation with patient: more than 10 minutes - Time Spent with Patient Total time spent providing and/or coordinating discharge services: Greater than 30 minutes - Discharge Medications Prescriptions: Isosorbide MONOnitrate (24 HR) [Imdur] 90 mg PO DAILY #30 tab.er.24h Metoprolol XL (24 HR) Succ [Toprol Xl] 25 mg PO DAILY #30 tab.er.24h Sacubitril/Valsartan 24/26 mg [Entresto 24 mg-26 mg Tablet] 1 tab PO BID #60 tablet Spironolactone [Aldactone] 25 mg PO DAILY #30 tablet Home Medications: Atorvastatin Calcium [Lipitor] 20 mg PO HS 01/11/17 [History] Aspirin [Lo-Dose Aspirin EC] 81 mg PO DAILY 03/16/18 [History] Brimonidine Tartrate [Alphagan P] 1 drop LEFT EYE BID 03/16/18 [History] Docusate Sodium [Dok] 100 mg PO BID 03/16/18 [History] Furosemide [Lasix] 40 mg PO BID 03/16/18 [History] Hydralazine HCl 50 mg PO TID 03/16/18 [History] Loperamide [Imodium] 2 mg PO DAILY PRN 03/16/18 [History] Melatonin [Melatin] 3 mg PO HS 03/16/18 [History] Metformin HCl [Glucophage] 1,000 mg PO DAILY 03/16/18 [History] Polyethylene Glycol 3350 [MiraLAX Powder Bulk 17.9 Oz] 1 scoop PO DAILY [History] Potassium Chloride [K-Tab ER] 20 meq PO DAILY 03/16/18 [History] PrednisoLONE Acetate 1% Opth [PredFORTE 1%] 1 drop LEFT EYE QID 03/16/18 [ History] Warfarin [Coumadin] 3.5 mg PO DAILY 03/16/18 [History] Calcium Carbonate [Tums] 1,000 mg PO HS 04/15/18 [History] Insulin LISPRO [Humalog] 0 unit SQ TIDWM 04/15/18 [History] Ipratropium/Albuterol Neb [Duoneb] 3 ml IH Q6HR PRN 04/15/18 [History] Isosorbide MONOnitrate (24 HR) [Imdur] 90 mg PO DAILY #30 tab.er.24h 04/18/18 [ Rx] Metoprolol XL (24 HR) Succ [Toprol Xl] 25 mg PO DAILY #30 tab.er.24h 04/18/18 [ Rx] Sacubitril/Valsartan 24/26 mg [Entresto 24 mg-26 mg Tablet] 1 tab PO BID #60 tablet 04/18/18 [Rx] Spironolactone [Aldactone] 25 mg PO DAILY #30 tablet 04/18/18 [Rx] Allergies/Adverse Reactions: 3 Allergy/AdvReac Type Severity Reaction Status Date / Time No Known Allergies Allergy Verified 01/11/17 09:05 Date of admission: 04/16/18 08:51 Primary care physician: Fer Nur MD Consults: 04/16/18 09:11 Consult to Occupational Therapy [CONS] Routine Comment: Evaluate, develop and implement POC Reason for Consult: deconditioning. return to ECF Does patient have active BEDREST order?: No Is patient medically & hemodynamically stable?: Yes Consult to Electrician'S Assistant [CONS] Routine Reason for SW Consult: return to [facility] Anticipated date of discharge: 04/18/18 - Constitutional Vitals: Temp Pulse Resp BP Pulse Ox 97.7 F 66 20 180/91 98 04/18/18 07:41 04/18/18 07:41 04/18/18 07:41 04/18/18 07:41 04/18/18 07:41 General appearance: Present: A&O X 3 Exam: PHYSICAL EXAMINATION: GENERAL APPEARANCE: The patient is alert, oriented and in no acute distress. HEENT: Head is normocephalic. The sinuses are nontender. Pupils are equal and reactive. The nares are patent. Oropharynx clear without lesions. NECK: Supple without lymphadenopathy. HEART: Regular rate and rhythm. LUNGS: No crackles or wheezes are heard. ABDOMEN: Soft, nontender, nondistended with good bowel sounds heard. Inguinal area is normal. EXTREMITIES: Without cyanosis, clubbing or edema. NEUROLOGICAL: Gross nonfocal. SKIN: Warm and dry without any rash. - Patient Status Disposition: Transfer SNF Condition: Fair Functional capacity at discharge: independent ambulation Overall status at discharge: patient is progressing back to baseline - Discharge Instructions Follow Up With: Fer Nur MD [Primary Care Provider] - 04/24/18 3:00 pm - Diet and Activity Activity: increase activity as tolerated Diet: diabetic diet, low fat, low cholesterol, low salt diet
--- NOTE | 2018-04-18 11:30 | Physician Discharge Referral ---
Extended[facility] Referral Info Provider in Charge after Transfer: PCP Institutional Level of Care: Skilled - Diagnosis (1) Acute exacerbation of CHF (congestive heart failure) Priority: Primary Status: Acute (2) Atrial fibrillation Priority: Secondary Status: Chronic (3) Diabetes mellitus Priority: Secondary Status: Chronic (4) Chronic kidney disease Priority: Secondary Status: Chronic (5) Hypertension Priority: Secondary Status: Chronic (6) DVT prophylaxis Priority: Primary Status: Acute Prognosis: Fair Aware of Diagnosis: Patient Aware of Prognosis: Patient - Transfer Medications Prescriptions: Isosorbide MONOnitrate (24 HR) [Imdur] 90 mg PO DAILY #30 tab.er.24h Metoprolol XL (24 HR) Succ [Toprol Xl] 25 mg PO DAILY #30 tab.er.24h Sacubitril/Valsartan 24/26 mg [Entresto 24 mg-26 mg Tablet] 1 tab PO BID #60 tablet Spironolactone [Aldactone] 25 mg PO DAILY #30 tablet Home Medications: Atorvastatin Calcium [Lipitor] 20 mg PO HS 01/11/17 [History] Aspirin [Lo-Dose Aspirin EC] 81 mg PO DAILY 03/16/18 [History] Brimonidine Tartrate [Alphagan P] 1 drop LEFT EYE BID 03/16/18 [History] Docusate Sodium [Dok] 100 mg PO BID 03/16/18 [History] Furosemide [Lasix] 40 mg PO BID 03/16/18 [History] Hydralazine HCl 50 mg PO TID 03/16/18 [History] Loperamide [Imodium] 2 mg PO DAILY PRN 03/16/18 [History] Melatonin [Melatin] 3 mg PO HS 03/16/18 [History] Metformin HCl [Glucophage] 1,000 mg PO DAILY 03/16/18 [History] Polyethylene Glycol 3350 [MiraLAX Powder Bulk 17.9 Oz] 1 scoop PO DAILY [History] Potassium Chloride [K-Tab ER] 20 meq PO DAILY 03/16/18 [History] PrednisoLONE Acetate 1% Opth [PredFORTE 1%] 1 drop LEFT EYE QID 03/16/18 [ History] Warfarin [Coumadin] 3.5 mg PO DAILY 03/16/18 [History] Calcium Carbonate [Tums] 1,000 mg PO HS 04/15/18 [History] Insulin LISPRO [Humalog] 0 unit SQ TIDWM 04/15/18 [History] Ipratropium/Albuterol Neb [Duoneb] 3 ml IH Q6HR PRN 04/15/18 [History] Isosorbide MONOnitrate (24 HR) [Imdur] 90 mg PO DAILY #30 tab.er.24h 04/18/18 [ Rx] Metoprolol XL (24 HR) Succ [Toprol Xl] 25 mg PO DAILY #30 tab.er.24h 04/18/18 [ Rx] Sacubitril/Valsartan 24/26 mg [Entresto 24 mg-26 mg Tablet] 1 tab PO BID #60 tablet 04/18/18 [Rx] Spironolactone [Aldactone] 25 mg PO DAILY #30 tablet 04/18/18 [Rx] Allergies/Adverse Reactions: 3 Allergy/AdvReac Type Severity Reaction Status Date / Time No Known Allergies Allergy Verified 01/11/17 09:05 - Respiratory Orders Smoking Cessation: Smoking cessation has been advised. For more information, call the [employer] Tobacco Quit Line at 6-598-WCAS-NOW. - Advance Directives Living Will: No Power of Early Childhood Assistant: No Code Status: Full Code - Mobility Orders Ambulate - Rehabiliation Orders Rehab Potential: Fair Rehab Orders: Evaluation for Physical Therapy, Evaluation for Occupational Therapy - Diet Orders Renal, Cardiac CERTIFICATION: I certify that the transfer of the above named patient to an Extended Care Facility is necessary for the continuing treatment of the diagnosis listed. The above information is true and accurate reflection of patient's current condition. Confidential - Redisclosure prohibited without a patient's written consent.
== END 2018-04-18 12:19 | DRG 291 ==
LOC: EMEROO 13:57 → 3BNU 13:57
PROVIDERS: ADMIT Internal Medicine; ATTEND Internal Medicine

== ENCOUNTER 2019-07-07 13:03 | Inpatient (IN) ==
[2019-07-07] MEDS ORDERED: 0.9 % Sodium Chloride 1,000 ML IVC ONE (13:24)
[2019-07-07 14:20] LABS: INR 1.2
[2019-07-07 14:23] LABS: Activated Partial Thrombo Time 30.1 Seconds (26.0-36.0)
[2019-07-07 14:24] LABS: Albumin 1.9 g/dL (3.5-5.7); Albumin/Globulin Ratio 0.7 (1.1-2.2); Bilirubin,Direct 0.6 mg/dL (0.0-0.2); Bilirubin,Indirect 0.6 mg/dL (0.0-1.0); Bilirubin,Total 1.2 mg/dL (0.3-1.0); Globulin 2.6 g/dL (2.4-3.5); Total Protein 4.5 g/dL (6.4-8.9)
[2019-07-07] MEDS ORDERED: Piperacillin/Tazobactam 3.375 GM in 0.9 % Sodium Chloride Mini Bag 100 ML IVPB ONE (14:49)
[2019-07-07] MEDS ORDERED: Clindamycin 600 MG/50 ML 600 MG/50 ML IV.SOLN IVPB ONE (14:50)
[2019-07-07] MEDS ORDERED: Acetaminophen 325 MG TABLET PO PRN (17:07)
[2019-07-07] MEDS ORDERED: *HR* HYDROcodone/Acet 5/325 mg TABLET PO PRN (17:07)
[2019-07-07] MEDS ORDERED: Ondansetron 4 MG/2 ML VIAL IVP PRN (17:07)
[2019-07-07] MEDS ORDERED: Naloxone 0.4 MG/ML INJ IVP PRN (17:07)
[2019-07-07] MEDS ORDERED: *HR* Dextrose 50 % in Water (Syg) 50 ML SYRINGE IVP PRN (17:20)
[2019-07-07] MEDS ORDERED: D5% in Water 1,000 ML IVC PRN (17:20)
[2019-07-07] MEDS ORDERED: Dextrose Gel 15 GM/37.5 ML TUBE PO PRN ×2 (17:20)
[2019-07-07] MEDS ORDERED: Ipratropium/Albuterol Neb 3 ML IH PRN (17:32)
[2019-07-07] MEDS ORDERED: Ipratropium/Albuterol Neb 3 ML IH SCH (17:45)
[2019-07-07] MEDS: *HR* Heparin 5,000 UNIT/ML VIAL SQ SCH (18:58)
[2019-07-07] MEDS: Furosemide 40 MG TABLET PO SCH (18:58)
[2019-07-07] MEDS: Ipratropium/Albuterol Neb 3 ML IH SCH (22:21)
[2019-07-08] MEDS: *HR* Heparin 5,000 UNIT/ML VIAL SQ SCH ×2 (05:48→17:32)
[2019-07-08] MEDS: Levothyroxine 25 MCG TABLET PO SCH (05:48)
[2019-07-08 06:50] LABS: Basophils % 0.1 %; Hematocrit 26.6 % (37.5-50.1); Hemoglobin 8.2 g/dL (12.9-16.9); Lymphocytes # 0.4 K/mcL (0.6-4.6); Lymphocytes % 1.9 %; Mean Corpuscular HGB Conc 30.8 g/dL (31.6-35.5); Mean Corpuscular Hemoglobin 31.4 pg (28.0-33.3); Mean Corpuscular Volume 101.9 fL (83.0-100.0); Mean Platelet Volume 10.2 fL (9.4-12.4); Monocytes # 0.9 K/mcL (0.0-1.3); Monocytes % 3.8 %; Platelet Count 220 K/mcL (140-400); Red Blood Count 2.61 M/mcL (4.19-5.50); Red Cell Distribution Width 14.9 % (11.5-14.5); Segmented Neutrophils % 93.2 %; White Blood Count 22.6 K/mcL (4.3-11.1)
[2019-07-08 06:54] LABS: Neutrophils # 21.1 K/mcL (1.6-8.9)
[2019-07-08 07:05] LABS: Calcium 7.3 mg/dL (8.6-10.3); Magnesium 1.7 mg/dL (1.6-2.6); Potassium 4.4 mEq/L (3.5-5.1)
[2019-07-08 07:18] LABS: Platelet Estimate Normal (Normal); Toxic Granulation Present (Not Present)
[2019-07-08] MEDS: Ipratropium/Albuterol Neb 3 ML IH SCH ×2 (07:51→19:57)
[2019-07-08] MEDS: Insulin LISPRO 300 UNITS/3 ML VIAL SQ SCH ×3 (08:00→17:27)
[2019-07-08] MEDS: Aspirin Enteric Coated 81 MG Tablet PO SCH (08:59)
[2019-07-08] MEDS: hydrALAZINE 25 MG TABLET PO SCH ×3 (09:00→21:02)
[2019-07-08] MEDS: Furosemide 40 MG TABLET PO SCH (09:00)
[2019-07-08] MEDS: Cyanocobalamin (B-12) 1,000 MCG TABLET PO SCH (09:00)
[2019-07-08] MEDS: Metoprolol XL (24 HR) Succ 50 MG TAB.ER.24H PO SCH (09:00)
[2019-07-08] MEDS: Isosorbide MONOnitrate (24 HR) 30 MG TAB.ER.24H PO SCH (09:01)
[2019-07-08] MEDS: Gentamicin Oint 15 GM TUBE TP SCH (11:56)
[2019-07-08] MEDS ORDERED: Sacubitril/Valsartan 24/26 MG 1 TABLET PO SCH (21:00)
[2019-07-09] MEDS: *HR* Heparin 5,000 UNIT/ML VIAL SQ SCH ×2 (05:18→21:21)
[2019-07-09 05:21] LABS: Basophils % 0.1 %; Lymphocytes % 1.6 %
[2019-07-09 05:22] LABS: Hematocrit 28.7 % (37.5-50.1); Hemoglobin 8.9 g/dL (12.9-16.9); Immature Granulocytes % 0.9 % (0-4); Lymphocytes # 0.4 K/mcL (0.6-4.6); Mean Corpuscular Hemoglobin 31.2 pg (28.0-33.3); Mean Corpuscular Volume 100.7 fL (83.0-100.0); Mean Platelet Volume 10.4 fL (9.4-12.4); Monocytes % 3.6 %; Platelet Count 250 K/mcL (140-400); Red Blood Count 2.85 M/mcL (4.19-5.50); Red Cell Distribution Width 14.9 % (11.5-14.5); Segmented Neutrophils % 93.8 %; White Blood Count 26.1 K/mcL (4.3-11.1)
[2019-07-09] MEDS: Levothyroxine 25 MCG TABLET PO SCH (05:22)
[2019-07-09 05:26] LABS: Monocytes # 0.9 K/mcL (0.0-1.3); Neutrophils # 24.5 K/mcL (1.6-8.9)
[2019-07-09 05:32] LABS: Calcium 7.5 mg/dL (8.6-10.3); Potassium 4.5 mEq/L (3.5-5.1)
[2019-07-09 06:07] LABS: Platelet Estimate Normal (Normal)
[2019-07-09] MEDS: Ipratropium/Albuterol Neb 3 ML IH SCH ×2 (07:33→22:20)
[2019-07-09] MEDS: Insulin LISPRO 300 UNITS/3 ML VIAL SQ SCH ×3 (10:07→16:59)
[2019-07-09] MEDS: hydrALAZINE 25 MG TABLET PO SCH ×3 (10:07→21:06)
[2019-07-09] MEDS: Isosorbide MONOnitrate (24 HR) 30 MG TAB.ER.24H PO SCH (10:07)
[2019-07-09] MEDS: Gentamicin Oint 15 GM TUBE TP SCH (10:07)
[2019-07-09] MEDS: Furosemide 40 MG TABLET PO SCH (10:08)
[2019-07-09] MEDS: Metoprolol XL (24 HR) Succ 50 MG TAB.ER.24H PO SCH (10:08)
[2019-07-09] MEDS: Cyanocobalamin (B-12) 1,000 MCG TABLET PO SCH (10:08)
[2019-07-09] MEDS: Aspirin Enteric Coated 81 MG Tablet PO SCH (10:09)
[2019-07-09] MEDS ORDERED: MetroNIDAZOLE 500 MG/100 ML 500 MG/100 ML BAG IVPB SCH (13:00)
[2019-07-09] MEDS ORDERED: Cefepime HCl 2,000 MG in Water for inj. (sterile) 20 ML IVP SCH (13:00)
[2019-07-09] MEDS ORDERED: Calcium Gluconate 1,000 MG/10 ML VIAL ONE (14:20)
[2019-07-09] MEDS ORDERED: Bupivacaine/EPI 1:200k 0.25%PF 30 ML VIAL ONE (14:33)
[2019-07-09] MEDS ORDERED: Lidocaine 1% 20 ML MDV ONE (14:34)
[2019-07-09] MEDS ORDERED: Vancomycin 1,000 MG VIAL ONE (14:37)
[2019-07-09] MEDS ORDERED: *HR* FentaNYL (PF) 100 MCG/2 ML VIAL ONE (14:41)
[2019-07-09] MEDS ORDERED: *HR* Rocuronium Bromide 50 MG/5 ML VIAL ONE (14:41)
[2019-07-09] MEDS ORDERED: *HR* Succinylcholine 200 MG/10 ML VIAL IVP ONE (14:41)
[2019-07-09] MEDS ORDERED: Lidocaine -MPF 4% 5 ML AMPUL ONE (14:41)
[2019-07-09] MEDS ORDERED: *HR* Propofol 200 MG/20 ML VIAL IVP ONE ×2 (14:41→14:51)
[2019-07-09] MEDS ORDERED: Ondansetron 4 MG/2 ML VIAL ONE (14:42)
[2019-07-09] MEDS ORDERED: Lidocaine -MPF 2% 2 ML VIAL ONE (14:42)
[2019-07-09] MEDS ORDERED: EPHEDrine 50 MG/ML VIAL ONE (15:21)
[2019-07-09] MEDS ORDERED: *HR* PHENYLEPHRINE 1,000 MCG/10 ML SYRINGE IVP ONE (15:23)
[2019-07-09] MEDS ORDERED: Clindamycin 900 MG/50 ML 900 MG/50 ML IV.SOLN IVPB SCH (16:00)
[2019-07-09] MEDS ORDERED: Naloxone 0.4 MG/ML INJ IVP PRN (17:11)
[2019-07-09] MEDS ORDERED: Ondansetron 4 MG/2 ML VIAL IVP PRN (17:11)
[2019-07-09] MEDS ORDERED: *HR* Dextrose 50 % in Water (Syg) 50 ML SYRINGE IVP PRN (17:11)
[2019-07-09] MEDS ORDERED: D5% in Water 1,000 ML IVC PRN (17:11)
[2019-07-09] MEDS ORDERED: Ipratropium/Albuterol Neb 3 ML IH PRN (17:11)
[2019-07-09] MEDS ORDERED: Acetaminophen 325 MG TABLET PO PRN (17:11)
[2019-07-09] MEDS ORDERED: Dextrose Gel 15 GM/37.5 ML TUBE PO PRN ×2 (17:11)
[2019-07-09] MEDS ORDERED: *HR* HYDROcodone/Acet 5/325 mg TABLET PO PRN (17:11)
[2019-07-10] MEDS: Clindamycin 900 MG/50 ML 900 MG/50 ML IV.SOLN IVPB SCH ×2 (00:41→08:15)
[2019-07-10] MEDS: Cefepime HCl 2,000 MG in Water for inj. (sterile) 20 ML IVP SCH ×2 (00:41→13:15)
[2019-07-10 02:58] LABS: Basophils % 0.1 %; Eosinophils % 0.1 %; Hematocrit 25.2 % (37.5-50.1); Hemoglobin 7.7 g/dL (12.9-16.9); Immature Granulocytes % 0.9 % (0-4); Lymphocytes # 0.7 K/mcL (0.6-4.6); Lymphocytes % 3.2 %; Mean Corpuscular HGB Conc 30.6 g/dL (31.6-35.5); Mean Corpuscular Hemoglobin 31.8 pg (28.0-33.3); Mean Corpuscular Volume 104.1 fL (83.0-100.0); Mean Platelet Volume 10.1 fL (9.4-12.4); Monocytes % 4.9 %; Platelet Count 214 K/mcL (140-400); Red Blood Count 2.42 M/mcL (4.19-5.50); Red Cell Distribution Width 14.9 % (11.5-14.5); Segmented Neutrophils % 90.8 %; White Blood Count 20.9 K/mcL (4.3-11.1)
[2019-07-10 03:15] LABS: Calcium 7.1 mg/dL (8.6-10.3); Potassium 4.5 mEq/L (3.5-5.1)
[2019-07-10] MEDS: *HR* Heparin 5,000 UNIT/ML VIAL SQ SCH (05:16)
[2019-07-10] MEDS ORDERED: Levothyroxine 25 MCG TABLET PO SCH (06:30)
[2019-07-10] MEDS: Ipratropium/Albuterol Neb 3 ML IH SCH ×2 (07:07→22:12)
[2019-07-10] MEDS: Insulin LISPRO 300 UNITS/3 ML VIAL SQ SCH ×2 (07:45→11:33)
[2019-07-10] MEDS: hydrALAZINE 25 MG TABLET PO SCH ×2 (08:16→14:47)
[2019-07-10] MEDS ORDERED: Gentamicin Oint 15 GM TUBE TP SCH (09:00)
[2019-07-10] MEDS ORDERED: Furosemide 40 MG TABLET PO SCH (09:00)
[2019-07-10] MEDS ORDERED: Metoprolol XL (24 HR) Succ 50 MG TAB.ER.24H PO SCH (09:00)
[2019-07-10] MEDS ORDERED: Isosorbide MONOnitrate (24 HR) 30 MG TAB.ER.24H PO SCH (09:00)
[2019-07-10] MEDS ORDERED: Aspirin Enteric Coated 81 MG Tablet PO SCH (09:00)
[2019-07-10] MEDS ORDERED: Cyanocobalamin (B-12) 1,000 MCG TABLET PO SCH (09:00)
[2019-07-10] MEDS ORDERED: DAPTOmycin 500 MG in 0.9 % Sodium Chloride 100 ML IVPB SCH (14:00)
[2019-07-10] MEDS ORDERED: Vancomycin 500 MG in 0.9 % Sodium Chloride Mini Bag 100 ML IVPB ONE (15:00)
[2019-07-10] MEDS ORDERED: *HR* Midazolam HCl 2 MG/2 ML VIAL ONE (15:13)
[2019-07-10] MEDS ORDERED: *HR* FentaNYL (PF) 100 MCG/2 ML VIAL ONE (15:13)
[2019-07-10] MEDS ORDERED: *HR* Propofol 200 MG/20 ML VIAL IVP ONE (15:13)
[2019-07-10] MEDS ORDERED: *HR* Vasopressin 20 UNIT/ML VIAL ONE (15:15)
[2019-07-10] MEDS ORDERED: *HR* Phenylephrine 10 MG/ML VIAL ONE ×2 (15:18→19:01)
[2019-07-10] MEDS ORDERED: Lidocaine -MPF 2% 2 ML VIAL ONE (15:22)
[2019-07-10] MEDS ORDERED: Ropivacaine/PF 0.5% 30 ML VIAL ONE (15:27)
[2019-07-10] MEDS ORDERED: *HR* HYDROmorphone (PF) 1 MG/ML SYRINGE IVP PRN (15:34)
[2019-07-10] MEDS ORDERED: Vancomycin 1,000 MG VIAL ONE (15:42)
[2019-07-10] MEDS ORDERED: Acetaminophen IV 1,000 MG/100 ML INFUS..BTL ONE (15:51)
[2019-07-10] MEDS ORDERED: Piperacillin/Tazobactam 3.375 GM in 0.9 % Sodium Chloride Mini Bag 100 ML IVPB SCH (16:00)
[2019-07-10] MEDS ORDERED: ceFAZolin 2,000 MG in Water for inj. (sterile) 20 ML IVP ONE (16:00)
[2019-07-10 16:14] VITALS: BP 97/76
[2019-07-10] MEDS ORDERED: EPHEDrine 50 MG/ML VIAL ONE (16:36)
[2019-07-10] MEDS ORDERED: Ondansetron 4 MG/2 ML VIAL ONE (16:56)
[2019-07-10] MEDS ORDERED: Heparin 1,000 UNITS/500 mL 500 ML ONE (17:26)
[2019-07-10] MEDS ORDERED: Vancomycin 1,000 MG, 0.9 % Sodium Chloride 1,000 ML IR ONE ×2 (17:30)
[2019-07-10] MEDS ORDERED: 0.9 % Sodium Chloride Mini Bag 100 ML ONE (17:59)
[2019-07-10 18:31] LABS: ABG Base Excess 3 mEq/L (-2 to 3); ABG HCO3 33 mEq/L (21-27); ABG Ionized Calcium 1.79 mmol/L (1.15-1.35); ABG Oxygen Saturation 88 % (95-98); ABG PCO2 94 mmHg (35-45); ABG PH 7.16 pH Units (7.32-7.45); ABG PO2 74 mmHg (85-104); ABG TCO2 36 mEq/L (20-26)
[2019-07-10] MEDS ORDERED: EPINEPHrine 5 MG in D5% in Water 250 ML IVC SCH (18:45)
[2019-07-10] MEDS ORDERED: Norepinephrine 16 MG in 0.9 % Sodium Chloride 500 ML IVC SCH (18:45)
[2019-07-10] MEDS ORDERED: Vasopressin 40 UNIT in D5% in Water 100 ML IVC SCH (18:45)
[2019-07-10] MEDS ORDERED: 0.9 % Sodium Chloride 500 ML ONE (18:50)
[2019-07-10] MEDS ORDERED: 0.9 % Sodium Chloride 1,000 ML ONE (18:52)
[2019-07-10] MEDS ORDERED: *HR* PHENYLEPHRINE 1,000 MCG/10 ML SYRINGE IVP ONE (19:01)
[2019-07-10 19:02] LABS: Hematocrit 22.7 % (37.5-50.1); Hemoglobin 6.9 g/dL (12.9-16.9); Mean Corpuscular HGB Conc 30.4 g/dL (31.6-35.5); Mean Corpuscular Hemoglobin 31.7 pg (28.0-33.3); Mean Corpuscular Volume 104.1 fL (83.0-100.0); Mean Platelet Volume 10.6 fL (9.4-12.4); Nucleated Red Blood Cells 0.2 /100 WBC (0); Platelet Count 169 K/mcL (140-400); Red Blood Count 2.18 M/mcL (4.19-5.50); Red Cell Distribution Width 15.2 % (11.5-14.5); White Blood Count 17.6 K/mcL (4.3-11.1)
[2019-07-10 19:23] LABS: INR 1.4; Lymphocytes # 4.2 K/mcL (0.6-4.6); Monocytes # 0.4 K/mcL (0.0-1.3); Prothrombin Time 16.4 Seconds (9.4-12.1)
[2019-07-10 19:24] LABS: Macrocytosis Present (Not Present); Platelet Estimate Normal (Normal)
[2019-07-10] MEDS ORDERED: Amiodarone Premix 360 MG/200 ML BAG IVC ONE (19:28)
[2019-07-10] MEDS ORDERED: Amiodarone 300 MG in D5% in Water 100 ML IVPB ONE (19:29)
[2019-07-10] MEDS ORDERED: Amiodarone Premix 360 MG/200 ML BAG IVC SCH (19:30)
[2019-07-10] MEDS ORDERED: 0.9 % Sodium Chloride 250 ML IVC SCH (19:30)
[2019-07-10 19:33] LABS: Alanine Aminotransferase 20 Units/L (7-52); Albumin < 1.5 g/dL (3.5-5.7); Alkaline Phosphatase 120 Units/L (34-104); Aspartate Amino Transferase 37 Units/L (13-39); BUN/Creatinine Ratio 29 (6-26); Bilirubin,Total 0.6 mg/dL (0.3-1.0); Blood Urea Nitrogen 58 mg/dL (8-23); Calcium 12.1 mg/dL (8.6-10.3); Carbon Dioxide 17 mEq/L (23-29); Chloride 121 mEq/L (98-107); Glucose 224 mg/dL (70-105); Osmolality,Calculated 323 (280-300); Potassium 5.1 mEq/L (3.5-5.1); Sodium 145 mEq/L (136-145); Total Protein 3.5 g/dL (6.4-8.9); Troponin I 0.06 ng/mL (< 0.04); eGFR For African Americans 40 (> 60); eGFR For Non-African Americans 33 (> 60)
[2019-07-10] MEDS ORDERED: Aminoglycoside Consult 1 EACH MC ONE (19:40)
[2019-07-10] MEDS ORDERED: *HR* Amiodarone 150 MG/3 ML VIAL IVPB ONE (19:40)
[2019-07-10 20:07] LABS: Activated Partial Thrombo Time > 360.0 Seconds (26.0-36.0)
== END 2019-07-10 19:41 | disposition expired | DRG 853 ==
LOC: EMEROOARM 13:03 → 3ANU 13:03 → SUATTDRO 17:50 → 3ANU 18:35 → ICNU 07-10 17:34
PROVIDERS: ADMIT Student in an Organized Health Care Education/Training Program; ATTEND Internal Medicine